=== PATIENT | female | born 1985 | race Caucasian/White ===

== ENCOUNTER 2016-09-09 11:17 | Outpatient (CLI) | payer MEDICAID ==
--- NOTE | 2016-09-09 12:00 | L&D Flow Sheet ---
LD Flowsheet Datetime Report Generated by CPN: 09/09/2016 12:00 Datetime: 09/09/2016 11:53 Vital Signs NBP Sys/Smitha/Mean (mmHg): 123 (QS system process) : 65 (QS system process) : 88 (QS system process) Pulse: 89 (QS system process) Communication LaborFlag: Antepartum (QS system process) Datetime: 09/09/2016 11:37 Vital Signs NBP Sys/Smitha/Mean (mmHg): 133 (QS system process) : 77 (QS system process) : 99 (QS system process) Pulse: 91 (QS system process) Communication LaborFlag: Antepartum (QS system process) Datetime: 09/09/2016 11:30 Uterine Activity Resting Tone (Palpate): Relaxed (Shavonne Murtaza, RN) Assessment A Monitor Mode: External US (Shavonne Murtaza, RN) Pain Pain Scale: 0 (Shavonne Hauser, RN) Pain Presence: None/Denies (Shavonne Hauser, RN) Pain Type: N/A (Shavonne Hauser, RN) Pain Goal: 1 (Shavonne Hauser RN) Pain Relief Measures: Comfort Measures (Shavonne Hauser RN) Vaginal Exam Membrane Status: Intact (Annotations: intact per patient) (Shavonne Hauser, RN) Amniotic Fluid Amount: None (Shavonne Hauser, RN) Vaginal Bleeding: None (Shavonne Hauesr, RN) Maternal Assessment Level of Consciousness: Fully Conscious (Shavonne Hauser RN) DTR's/Clonus: DTRs 2+; No Clonus (Shavonne Hauser RN) Headache: Denies (Shavonne Hauser RN) Breath Sounds, Left: Clear and Equal (Shavonne Hauser RN) Breath Sounds, Right: Clear and Equal (Shavonne Hauser RN) Nausea/Vomiting: Denies (Shavonne Hauser RN) RUQ Epigastric Pain: Denies (Shavonne Hauser RN) Patient Care Oxygen Method: Room Air (Shavonne Hauser RN) Patient Position/Activity: Left Tilt; Semi-Fowlers (Shavonne Hauser RN) I/O Interventions: Clear Liquids Given (Shavonne Hauser RN) Provider Reviewed Strip: Yes (Shavonne Hauser RN) Teaching Instructional Method: Verbal (Shavonne Hauser RN) Plan of Care: Plan of Care Discussed (Shavonne Hauser RN) Unit Routine: [place] to Room; Call Cain; Bed; Visiting Policy (Shavonne Hauser RN) Communication LaborFlag: Antepartum (QS system process)
[2016-09-09 12:07] LABS: APPEARANCE,URINE CLEAR; BILIRUBIN,URINE NEGATIVE (NEGATIVE); GLUCOSE, URINE NEGATIVE (NEGATIVE); KETONES,URINE NEGATIVE (NEGATIVE); LEUKOCYTE ESTERASE,URINE NEGATIVE (NEGATIVE); NITRITE,URINE NEGATIVE (NEGATIVE); PROTEIN,URINE NEGATIVE (NEGATIVE); URINE SPECIFIC GRAVITY 1.005; UROBILINOGEN,URINE NEGATIVE mg/dL (<2.0)
[2016-09-09 12:27] LABS: ABSOLUTE LYMPHOCYTES (AUTO) 1.5 10^3/uL (0.5-4.7); ABSOLUTE MONOCYTES (AUTO) 0.5 10^3/uL (0.1-1.4); ABSOLUTE NEUT (AUTO) 8.2 10^3/uL (1.7-8.2); EOSINOPHILS % (AUTO) 0.1 % (0-6); HEMATOCRIT 35.9 % (36.0-47.0); HEMOGLOBIN 11.9 g/dL (12.0-15.5); HGB HCT DIFFERENCE -0.2; LYMPHOCYTES % (AUTO) 14.6 % (13-45); MEAN CORPUSCULAR HEMOGLOBIN 27.7 pg (27.0-33.4); MEAN CORPUSCULAR HGB CONC 33.2 g/dL (32.0-36.0); MEAN CORPUSCULAR VOLUME 83 fl (80-97); MONOCYTES % (AUTO) 4.9 % (3-13); RED BLOOD COUNT 4.31 10^6/uL (3.72-5.28); RED CELL DISTRIBUTION WIDTH 13.3 % (11.5-14.0); SEGMENTED NEUTROPHILS % (AUTO) 80.4 % (42-78); WHITE BLOOD COUNT 10.2 10^3/uL (4.0-10.5)
[2016-09-09 12:55] LABS: ALANINE AMINOTRANSFERASE 19 U/L (9-52); ALBUMIN 3.4 g/dL (3.5-5.0); ALKALINE PHOSPHATASE 113 U/L (38-126); ANION GAP 10 (5-19); ASPARTATE AMINO TRANSFERASE 16 U/L (14-36); BILIRUBIN,TOTAL 0.2 mg/dL (0.2-1.3); BLOOD UREA NITROGEN 9 mg/dL (7-20); CALCIUM 8.9 mg/dL (8.4-10.2); CARBON DIOXIDE 23 mmol/L (22-30); CHLORIDE 105 mmol/L (98-107); CREATININE RESULT 0.52 mg/dL (0.52-1.25); GLUCOSE 68 mg/dL (75-110); LDH 281 U/L (313-618); POTASSIUM 3.9 mmol/L (3.6-5.0); SODIUM 137.5 mmol/L (137-145); TOTAL PROTEIN 6.1 g/dL (6.3-8.2); URIC ACID 4.6 mg/dL (2.5-6.2)
--- NOTE | 2016-09-09 13:33 | Non Stress Test Report ---
Non Stress Test Datetime Report Generated by CPN: 09/09/2016 13:33 DEMOGRAPHIC EGA NST: 34.6 EGA NST: 32.2 INDICATION Indication for Study: Ordered by Provider Indication for Study: Ordered by Provider VITAL SIGNS Temperature - NST: 98.1 Pulse - NST: 92 RESP - NST: 16 NBPSYS NST: 137 NBPDIA NST: 88 MONITORING Monitor Explained: Monitor Explained; Test Explained; Patient Verbalized Understanding Monitor Explained: Monitor Explained; Test Explained; Patient Verbalized Understanding Time on Monitor: 09/09/2016 11:27 Time on Monitor: 08/22/2016 14:34 Time off Monitor: 09/09/2016 13:29 NST Duration: 122 NST INTERVENTIONS NST Interventions: PO Hydration NST Interventions: PO Hydration; Reposition Patient Physician Notified NST: A. Emmel, CNM BABY A: [id number] BABY A Movement : Present Movement : Present Contraction Frequency : none Contraction Frequency : IRREG FHR Baseline : 130 FHR Baseline : 130 Accelerations : 15X15 Accelerations : 15X15 Decelerations : None Decelerations : None Variability : Moderate 6-25bpm Variability : Moderate 6-25bpm NST Review: Meets Criteria for Reactive NST NST Review: Meets Criteria for Reactive NST NST Review and Verified By : Garfield Che [facility] NST Results: Reactive NST Results: Reactive NST REPORT Report Trigger: Send Report Report Trigger: Send Report
[2016-09-09 18:10] LABS: URINE METHADONE SCREEN NEGATIVE; URINE PHENCYCLIDINE SCREEN NEGATIVE
[2016-09-09 18:41] LABS: URINE BARBITURATES SCREEN NEGATIVE
--- NOTE | 2016-09-15 14:33 | Antepartum Discharge Summary ---
Antepartum DC Datetime Report Generated by CPN: 09/15/2016 14:33 Diet: Regular (09/09/2016 13:19:Shavonne Hauser RN) Activity: Normal Activity (09/09/2016 13:19:Shavonne Hauser RN) Instructions Given To: patient (09/09/2016 13:19:Shavonne Hauser RN) Instructions Understood: Patient Verbalized Understanding; Support Person Verbalized Understanding (09/09/2016 13:19:Shavonne Hauser RN) Referrals: None (09/09/2016 13:19:Shavonne Hauser RN) Educational Materials- Other: kick counts (09/09/2016 13:19:Shavonne Hauser RN) Discharged AMA: No (09/09/2016 13:19:Shavonne Hauser RN) Discharge Date/Time: 09/09/2016 13:35 (09/09/2016 13:19:Shavonne Hauser RN) Discharged To: Home (09/09/2016 13:19:Shavonne Hauser RN) Discharge Provider Name: Nga Evans CNM (09/09/2016 13:19:Shavonne Hauser RN) Accompanied By: self (09/09/2016 13:19:Shavonne Hauser RN) Discharge Method: Ambulatory (09/09/2016 13:19:Shavonne Hauser RN) Condition: Stable (09/09/2016 13:19:Shavonne Hauser RN) Follow Up With: [facility] (09/09/2016 13:19:Shavonne Hauser RN) Follow Up On: As Scheduled (09/09/2016 13:19:Shavonne Hauser RN) Follow Up Phone Number: [facility] - (09/09/2016 13:19:Shavonne Hauser RN) Contractions: Contractions or cramps become more frequent than 8 in one hour or 4 in 20 minutes; Regular painful contractions every 5 minutes or less for one hour. Time your contractions from the beginning of one to the beginning of the next (09/09/2016 13:19:Shavonne Hauser RN) Pressure: Pressure in your vagina or lower abdomen that may feel like the baby is pushing down (09/09/2016 13:19:Shavonne Hauser RN) Period Like Cramps: Period-like cramps or low dull backache that may come and go (09/09/2016 13:19:Shavonne Hauser RN) Cramps/Diarrhea: Abdominal cramps that may be accompanied by diarrhea (09/09/2016 13:19:Shavonne Hauser RN) Gush of Fluid/Blood: Gush of fluid or blood from your vagina (it is normal to have spotting after vaginal exam or intercourse) (09/09/2016 13:19:Shavonne Hauser RN) Vaginal Discharge: Change in the type or amount of vaginal discharge (09/09/2016 13:19:Shavonne Hauser RN) Decreased Movement: Your baby is not moving as much as usual- 4 movements in 1 hour after drinking and resting on side (09/09/2016 13:19:Shavonne Hauser RN) Temperature: Temperature greater than 100.0(F) orally (09/09/2016 13:19:Shavonne Hauser RN) Hypertension Signs/Symptoms: Severe headache which is not relieved 30 minutes after taking Tylenol(Acetaminophen); Blurry vision or spots before your eyes; Severe heartburn or pain on the upper right side of your abdomen that is not relieved by an antacid; Increased swelling in your face, hands or feet (09/09/2016 13:19:Shavonne Hauser RN) Urinary Output: Decreased urinary output or dark colored urine (09/09/2016 13:19:Shavonne Hauser RN)
--- NOTE | 2016-09-15 14:34 | L&D General Admission ---
General Admit Datetime Report Generated by CPN: 09/15/2016 14:34 INFORMATION Patient Age: 30 (08/06/2016 15:13:QS system process) EDC: 10/15/2016 00:00 (08/06/2016 15:40:Meghan Hawkins RN) : 4 (08/06/2016 15:40:Meghan Hawkins RN) Para: 2 (08/13/2016 21:31:Allyson Saenz RN) Para: 2 (08/06/2016 17:24:Meghan Hawkins RN) Para: 2 (08/06/2016 15:40:Meghan Hawkins RN) Term: 2 (08/06/2016 15:40:Clary Mann RN) : 0 (08/06/2016 15:40:Clary Mann RN) Spontaneous Abortions: 1 (08/06/2016 15:40:Clary Mann RN) Induced Abortions: 0 (08/06/2016 15:40:Clary Mann RN) Livin (08/06/2016 15:40:Meghan Hawkins RN) Cesareans: 0 (08/06/2016 15:40:Clary Mann RN) VBACs: 0 (08/06/2016 15:40:Clary Mann RN) Ectopic: 0 (08/06/2016 15:40:Clary Mann RN) Multiple Births: 0 (08/06/2016 15:40:Clary Mann RN) Baby, Number in Womb: 1 (09/09/2016 13:19:Shavonne Hauser RN) Baby, Number in Womb: 1 (08/13/2016 21:31:Allyson Saenz RN) Baby, Number in Womb: 1 (08/06/2016 17:24:Meghan Hawkins RN) CARE Primary Metalsmith Helper: [facility] (08/06/2016 15:40:Meghan Hawkins RN) Metalsmith Helper Other: [facility] (08/06/2016 15:40:Meghan Hawkins RN) Month of 1st Visit: (08/06/2016 15:40:Clary Mann RN) Adequate Care: Yes (08/06/2016 15:40:Meghan Hawkins RN) Prepregnancy Weight (lb): 152 (08/06/2016 15:40:Clary Mann RN) Prepregnancy Weight (kg): 69.1 (08/06/2016 15:40:QS system process) Height (in): 62 (09/09/2016 11:52:QS system process) Height (in): 62 (08/22/2016 15:20:QS system process) Height (in): 62 (08/13/2016 21:18:QS system process) Height (in): 62 (08/08/2016 10:23:QS system process) ALLERGIES Medication Allergy: Yes (08/06/2016 15:40:Meghan Hawkins RN) Medication Allergies: Penicillins/Generalized radha (09/09/2016); amoxicillin/SC/rash (09/09/2016) (09/09/2016 11:52:QS system process) Medication Allergies: Penicillins/Generalized radha (08/13/2016); amoxicillin/SC/rash (08/13/2016) (08/13/2016 21:18:QS system process) Medication Allergies: Penicillins/Generalized radha (08/08/2016); amoxicillin/SC/rash (08/08/2016) (08/08/2016 10:23:QS system process) Medication Allergies: Penicillins/Generalized radha (08/06/2016); amoxicillin/SC/rash (08/06/2016) (08/06/2016 15:44:QS system process) Medication Allergies: Penicillins/Generalized radha (11/10/2013); amoxicillin/SC/rash (11/22/2013) (08/06/2016 15:13:QS system process) Latex Allergy: No Latex Allergies (08/06/2016 15:40:Meghan Hawkins RN) Food Allergies: None (08/06/2016 15:40:Allyson Saenz RN) Environmental Allergies: None (08/06/2016 15:40:Allyson Saenz RN) COMMUNICATION Primary Language: Ugandan (08/06/2016 15:40:Meghan Hawkins RN) Medical Tx Preferred Language: Ugandan (08/06/2016 15:40:Allyson Saenz RN) Communication Barrier(s): None (08/06/2016 15:40:Allyson Saenz RN) DEMOGRAPHICS Address: [address] [place] [id number] (08/06/2016 15:13:QS system process) Zipcode: [address] (08/06/2016 15:13:QS system process) Home (08/06/2016 15:13:QS system process) SSN: [id number] (08/06/2016 15:13:QS system process) Next of Kin Name: FACUNDO OCASIO (08/06/2016 15:13:QS system process) Next of Kin (08/06/2016 15:13:QS system process) Next of Kin Relationship: SPO (08/06/2016 15:13:QS system process) Date of : 1985 (08/06/2016 15:13:QS system process) Marital Status: (08/06/2016 15:13:QS system process) Sex: Female (08/06/2016 15:13:QS system process) Race: (08/06/2016 15:13:QS system process) Ethnicity: Non- or (08/06/2016 15:13:QS system process) Hinduism: Mandaen (08/06/2016 15:13:QS system process) DRUG AND ALCOHOL USE Alcohol: No (08/06/2016 15:40:Meghan Hawkins RN) Cigarettes: Never Smoker. [id number] (08/06/2016 15:40:Meghan Hawkins RN) Marijuana: No (08/06/2016 15:40:Meghan Hawkins RN) Cocaine: No (08/06/2016 15:40:Meghan Hawkins RN) Other Illicit Drugs: No (08/06/2016 15:40:Meghan Hawkins RN) VACCINE HISTORY Influenza Vaccine: No (08/06/2016 15:40:Sommer West RN) Upsetter Setter Up: [facility] (08/06/2016 15:40:Meghan Hawkins RN) Feeding Preference: Breast (08/06/2016 15:40:Meghan Hawkins RN) Benefit of Breast Feed Discussed: Yes (08/06/2016 15:40:Meghan Hawkins RN) Circumcision: Yes (08/06/2016 15:40:Meghan Hawkins RN) Classes Attended: No (08/06/2016 15:40:Meghan Hawkins RN) Tubal Ligation: No (08/06/2016 15:40:Meghan Hawkins RN) Tubal Authorization Signed: N/A (08/06/2016 15:40:Meghan Hawkins RN) Consent: N/A (08/06/2016 15:40:Meghan Hawkins RN) Consent Signed: N/A (08/06/2016 15:40:Meghan Hawkins RN) Pain Management Plans: Natural; Medications (08/06/2016 15:40:Meghan Hawkins RN) Plans for Labor and Delivery: None (08/06/2016 15:40:Allyson Saenz RN) Support Person: Facundo Ocasio (08/06/2016 15:40:Meghan Hawkins RN) Cultural/Spritual Practice: No (08/06/2016 15:40:Meghan Hawkins RN) Spir/Cult Dietary Needs: No (08/06/2016 15:40:Meghan Hawkins RN) LIVING SITUATION/DISCHARGE PLAN Living Arrangements: House (08/06/2016 15:40:Meghan Hawkins RN) Adequate Access to:: Electric; Heat; Refrigeration; Plumbing/Running water; Phone; Transportation (08/06/2016 15:40:Meghan Hawkins RN) WIC Program: Yes (08/06/2016 15:40:Meghan Hawkins RN) Discharge Weighing Station Operator Person: Facundo Ocasio (08/06/2016 15:40:Meghan Hawkins RN) Person to Help after Discharge: Facundo Ocasio (08/06/2016 15:40:Meghan Hawkins RN) Currently Using Commun Resources: Yes (08/06/2016 15:40:Meghan Hawkins RN) Specify Current Resource Used: Medicaid (08/06/2016 15:40:Meghan Hawkins RN) Car Seat for Discharge: Yes (08/06/2016 15:40:Meghan Hawkins RN) Adoption Requested: No (08/06/2016 15:40:Meghan Hawkins RN) Pt Contact w/infant Post : N/A (08/06/2016 15:40:Allyson Saenz RN) LABS Blood Type: O Positive (08/06/2016 15:40:Sommer West RN) Antibody Screen: Negative (08/06/2016 15:40:Sommer West RN) Rho(G) this : Not Applicable (08/06/2016 15:40:Clary Mann RN) Hemoglobin: 11.9 L (09/09/2016 12:13:QS system process) Hemoglobin: 12.1 (08/22/2016 14:29:QS system process) Hemoglobin: 12.3 (08/06/2016 15:59:QS system process) Hematocrit: 35.9 L (09/09/2016 12:13:QS system process) Hematocrit: 35.1 L (08/22/2016 14:29:QS system process) Hematocrit: 35.2 L (08/06/2016 15:59:QS system process) MCV: 83 (09/09/2016 12:13:QS system process) MCV: 84 (08/22/2016 14:29:QS system process) MCV: 84 (08/06/2016 15:59:QS system process) RPR/VDRL: Nonreactive (Annotations: Data stored by CPN on behalf of user) (08/06/2016 15:40:Sommer West RN) HIV Exposure Test: Negative (08/06/2016 15:40:Sommer West RN) HIV Results: Negative (08/06/2016 15:40:Sommer West RN) Hepatitis B: Negative (08/06/2016 15:40:Clary Mann RN) Rubella: Immune (08/06/2016 15:40:Clary Mann RN) OB/PREVIOUS HISTORY Previous Procedures: Ultrasound; NST (08/06/2016 15:40:Sommer West RN) Current Procedures: Ultrasound; NST (08/06/2016 15:40:Sommer West RN) History of Previous : No (08/06/2016 15:40:Sommer West RN) History of Gestational Diabetes: No (08/06/2016 15:40:Sommer West RN) History of PIH: Yes (08/06/2016 15:40:Sommer West RN) History of Incompetent Cervix: No (08/06/2016 15:40:Sommer West RN) History of Placenta Previa/Abrup: No (08/06/2016 15:40:Sommer West RN) History of Macrosomia: No (08/06/2016 15:40:Sommer West RN) History of IUGR: No (08/06/2016 15:40:Sommer West RN) History of Hemorrhage: No (08/06/2016 15:40:Sommer West RN) History of Loss/Stillborn: No (08/06/2016 15:40:Sommer West RN) History of : No (08/06/2016 15:40:Sommer West RN) History of D (Rh) Sensitization: No (08/06/2016 15:40:Sommer West RN) History Recurrent Loss/Stillborn: No (08/06/2016 15:40:Sommer West RN) History Depression/PP Depression: No (08/06/2016 15:40:Sommer West RN) History of Uterine Anomaly/SHAWN: No (08/06/2016 15:40:Sommer West RN) History of Infertility: No (08/06/2016 15:40:Sommer West RN) History of ART Treatment: No (08/06/2016 15:40:Sommer West RN) History of SHAWN: No (08/06/2016 15:40:Sommer West RN) Comments Obstetrical History: G1: 2010 baby girl, 39 weeks, 3 hours labor, 5 lb 4 oz, HTN G2: 2013 baby girl, 38.3 weeks, 2 hours labor, 6 lb 10 oz G3: 2014 SAB 8 weeks G4: Current; Breech 08/06; Baseline 24* protein 352 05/27 (08/06/2016 15:40:Clary Mann RN) MEDICAL HISTORY Med Hx Diabetes: No (08/06/2016 15:40:Sommer West RN) Med Hx Hypertension: No (08/06/2016 15:40:Sommer West RN) Med Hx Heart Disease: No (08/06/2016 15:40:Sommer West RN) Med Hx Autoimmune Disorder: No (08/06/2016 15:40:Sommer West RN) Med Hx Kidney Disease/UTI: No (08/06/2016 15:40:Sommer West RN) Med Hx Neurologic/Epilepsy: No (08/06/2016 15:40:Sommer West RN) Med Hx Psychiatric Disorders: No (08/06/2016 15:40:Sommer West RN) Med Hx Hepatitis/Liver Disease: No (08/06/2016 15:40:Sommer West RN) Med Hx Varicosities/Phlebitis: No (08/06/2016 15:40:Sommer West RN) Med Hx Thyroid Dysfunction: No (08/06/2016 15:40:Sommer West RN) Med Hx Trauma/Violence: No (08/06/2016 15:40:Sommer West RN) Med Hx Blood Transfusion: No (08/06/2016 15:40:Sommer West RN) Med Hx Pulmonary (Asthma,TB): No (08/06/2016 15:40:Sommer West RN) Med Hx Breast: No (08/06/2016 15:40:Sommer West RN) Med Hx PARACHUTE/COMBATANT DIVER OFFICER Surgery: No (08/06/2016 15:40:Sommer West RN) Med Hx Hospitalization/Surgery: No (08/06/2016 15:40:Sommer West RN) Med Hx Anesthetic Complications: No (08/06/2016 15:40:Sommer West RN) Med Hx Abnormal Pap Smear: No (08/06/2016 15:40:Sommer West RN) Other Medical Diseases: No (08/06/2016 15:40:Sommer West RN) Med Hx Significant Family Hx: No (08/06/2016 15:40:Sommer West RN) INFECTIOUS HISTORY Inf Hx Gonorrhea: No (08/06/2016 15:40:Sommer West RN) Inf Hx Chlamydia: No (08/06/2016 15:40:Sommer West RN) Inf Hx Syphilis: No (08/06/2016 15:40:Sommer West RN) Inf Hx HIV/AIDS: No (08/06/2016 15:40:Sommer West RN) Inf Hx Human Papilloma Virus: No (08/06/2016 15:40:Sommer West RN) Inf Hx Pt/Partner Genital Herpes: No (08/06/2016 15:40:Sommer West RN) Inf Hx Tuberculosis/Exposure: No (08/06/2016 15:40:Sommer West RN) Inf Hx Hepatitis B,C: No (08/06/2016 15:40:Sommer West RN) Inf Hx Rash or Viral Illness: No (08/06/2016 15:40:Sommer West RN) GENETIC HISTORY Gen Hx Age >=35 at LELSIE: No (08/06/2016 15:40:Sommer West RN) Gen Hx Thalassemia: No (08/06/2016 15:40:Sommer West RN) Gen Hx Congenital Heart Defect: No (08/06/2016 15:40:Sommer West RN) Gen Hx Neural Tube Defect: No (08/06/2016 15:40:Sommer West RN) Gen Hx Down's Syndrome: No (08/06/2016 15:40:Sommer West RN) Gen Hx Julius-Sachs: No (08/06/2016 15:40:Sommer West RN) Gen Hx Fabrice: No (08/06/2016 15:40:Sommer West RN) Gen Hx Familial Dysautonomia: No (08/06/2016 15:40:Sommer West RN) Gen Hx Sickle Cell Disease/Trait: No (08/06/2016 15:40:Sommer West RN) Gen Hx Hemophilia/Blood Disorder: No (08/06/2016 15:40:Sommer West RN) Gen Hx Muscular Dystrophy: No (08/06/2016 15:40:Sommer West RN) Gen Hx Cystic Fibrosis: No (08/06/2016 15:40:Sommer West RN) Gen Hx Huntingtons Chorea: No (08/06/2016 15:40:Sommer West RN) Gen Hx Mental Retardation/Autism: No (08/06/2016 15:40:Sommer West RN) Gen Hx Tested for Fragile X: No (08/06/2016 15:40:Sommer West RN) Gen Hx Other Inher/Chromosomal: No (08/06/2016 15:40:Sommre West RN) Gen Hx Maternal Metabolic DO: No (08/06/2016 15:40:Sommer West RN) Gen Hx Pt Father or FOB Defect: No (08/06/2016 15:40:Sommer West RN) Gen Hx Other Genetic History: No (08/06/2016 15:40:Sommer West RN) Gen Hx Drugs/Meds since LMP: No (08/06/2016 15:40:Sommer West RN)
--- NOTE | 2016-09-15 14:34 | L&D Current Admission ---
Current Admit Datetime Report Generated by N: 09/15/2016 14:34 Chief Complaint[facility] (09/09/2016 11:30:Shavonne Hauser RN)
--- NOTE | 2016-09-15 14:34 | L&D Flow Sheet ---
LD Flowsheet Datetime Report Generated by CPN: 09/15/2016 14:34 Datetime: 09/09/2016 13:22 NBP Sys/Smitha/Mean (mmHg): 108 (QS system process) : 60 (QS system process) : 79 (QS system process) Pulse: 81 (QS system process) LaborFlag: Antepartum (QS system process) Datetime: 09/09/2016 13:07 NBP Sys/Smitha/Mean (mmHg): 117 (QS system process) : 61 (QS system process) : 83 (QS system process) Pulse: 87 (QS system process) LaborFlag: Antepartum (QS system process) Datetime: 09/09/2016 13:00 Monitor Mode: External; Palpation (Shavonne Hauser, RN) Frequency (min): none (Shavonne Hauser, RN) Resting Tone (Palpate): Relaxed (Shavonne Hauser, RN) Monitor Mode: External US (Shavonne Hauser, RN) FHR Baseline Rate : 125 (Shavonne Hauser, RN) FHR Baseline Changes: No Baseline Change (Shavonne Murtaza, RN) Variability: Moderate 6-25 bpm (Shavonne Murtaza, RN) Accelerations: 15X15 (Shavonne Murtaza, RN) Decelerations: None (Shavonne Murtaza, RN) Datetime: 09/09/2016 12:52 NBP Sys/Smitha/Mean (mmHg): 119 (QS system process) : 66 (QS system process) : 88 (QS system process) Pulse: 89 (QS system process) LaborFlag: Antepartum (QS system process) Datetime: 09/09/2016 12:37 NBP Sys/Smitha/Mean (mmHg): 125 (QS system process) : 70 (QS system process) : 91 (QS system process) Pulse: 86 (QS system process) LaborFlag: Antepartum (QS system process) Datetime: 09/09/2016 12:30 Monitor Mode: External; Palpation (Shavonne Hauser, RN) Frequency (min): none (Shavonne Hauser, RN) Resting Tone (Palpate): Relaxed (Shavonne Hauser RN) Monitor Mode: External US (Shavonne Hauser RN) FHR Baseline Rate : 125 (Shavonne Hauser RN) FHR Baseline Changes: No Baseline Change (Shavonne Hauser, RN) Variability: Moderate 6-25 bpm (Shavonne Hauser, RN) Accelerations: 15X15 (Shavonne Hauser, RN) Decelerations: None (Shavonne Hauser, RN) Datetime: 09/09/2016 12:22 NBP Sys/Smitha/Mean (mmHg): 125 (QS system process) : 66 (QS system process) : 89 (QS system process) Pulse: 89 (QS system process) LaborFlag: Antepartum (QS system process) Datetime: 09/09/2016 12:07 NBP Sys/Smitha/Mean (mmHg): 123 (QS system process) : 68 (QS system process) : 90 (QS system process) Pulse: 88 (QS system process) LaborFlag: Antepartum (QS system process) Datetime: 09/09/2016 12:00 Monitor Mode: External; Palpation (Shavonne Hauser RN) Frequency (min): none (Shavonne Hauser RN) Resting Tone (Palpate): Relaxed (Shavonne Hauser RN) Monitor Mode: External US (Shavonne Hauser RN) FHR Baseline Rate : 125 (Shavonne Hauser, RN) Variability: Moderate 6-25 bpm (Shavonne Hauser, RN) Accelerations: 15X15 (Shavonne Hauser RN) Decelerations: None (Shavonne Hauser RN) Datetime: 09/09/2016 11:53 NBP Sys/Smitha/Mean (mmHg): 123 (QS system process) : 65 (QS system process) : 88 (QS system process) Pulse: 89 (QS system process) LaborFlag: Antepartum (QS system process) Datetime: 09/09/2016 11:37 NBP Sys/Smitha/Mean (mmHg): 133 (QS system process) : 77 (QS system process) : 99 (QS system process) Pulse: 91 (QS system process) LaborFlag: Antepartum (QS system process) Datetime: 09/09/2016 11:30 Resting Tone (Palpate): Relaxed (Shavonne Hauser RN) Monitor Mode: External US (Shavonne Hauser RN) Pain Scale: 0 (Shavonen Hauser RN) Pain Presence: None/Denies (Shavonne Hauser RN) Pain Type: N/A (Shavonne Hauser RN) Pain Goal: 1 (Shavonne Hauser RN) Pain Relief Measures: Comfort Measures (Shavonne Hauser RN) Membrane Status: Intact (Annotations: intact per patient) (Shavonne Hauser RN) Amniotic Fluid Amount: None (Shavonne Hauser RN) Vaginal Bleeding: None (Shavonne Hauser RN) Level of Consciousness: Fully Conscious (Shavonne Hauser RN) DTR's/Clonus: DTRs 2+; No Clonus (Shavonne Hauser, BAR) Headache: Denies (Shavonne Hauser RN) Breath Sounds, Left: Clear and Equal (Shavonne Hauser RN) Breath Sounds, Right: Clear and Equal (Shavonne Hauser, BAR) Nausea/Vomiting: Denies (Shavonne Hauser RN) RUQ Epigastric Pain: Denies (Shavonne Hauser, BAR) Oxygen Method: Room Air (Shavonne Hauser, RN) Patient Position/Activity: Left Tilt; Semi-Fowlers (Shavonne Hauser, BAR) I/O Interventions: Clear Liquids Given (Shavonne Hauser RN) Provider Reviewed Strip: Yes (Shavonne Hauser, BAR) Instructional Method: Verbal (Shavonne Hauser, RN) Plan of Care: Plan of Care Discussed (Shavonne Hauser, RN) Unit Routine: [place] to Room; Call Cain; Bed; Visiting Policy (Shavonne Hauser RN) LaborFlag: Antepartum (QS system process)
--- NOTE | 2016-09-15 14:35 | L&D Discharge Summary ---
OB Discharge Summary Datetime Report Generated by CPN: 09/15/2016 14:35 DISCHARGE DIAGNOSIS Diagnosis/Symptoms: Other Diagnoses/Symptoms Other: IUP at 34.6, reactive NST, no pre-e Gestation: 34.6 Number of Babies in Womb: 1 Parity: 2 DIET/ACTIVITY/RESTRICTIONS Diet: Regular Activity: Normal Activity TEACHING/INSTRUCTIONS/REFERRALS Instructions Given To: patient Instructions Understood: Patient Verbalized Understanding; Support Person Verbalized Understanding Referrals: None Educational Materials- Other: kick counts DISCHARGE INFORMATION Discharged AMA: No Discharge Date/Time: 09/09/2016 13:35 Discharged To: Home Discharge Provider Name: Nga EvansCHATOObey Accompanied By: self Discharge Method: Ambulatory Condition: Stable FOLLOW UP INFORMATION Follow Up With: [facility] Follow Up On: As Scheduled Follow Up Phone Number: [facility] - Comments: Advised patient to return for decreased movement, leaking of fluid, bleeding like a period, and contractions. Patient without questions at this time. GENERAL INSTR-CALL PROVIDER IF: Contractions: Contractions or cramps become more frequent than 8 in one hour or 4 in 20 minutes; Regular painful contractions every 5 minutes or less for one hour. Time your contractions from the beginning of one to the beginning of the next Pressure: Pressure in your vagina or lower abdomen that may feel like the baby is pushing down Period Like Cramps: Period-like cramps or low dull backache that may come and go Cramps/Diarrhea: Abdominal cramps that may be accompanied by diarrhea Gush of Fluid/Blood: Gush of fluid or blood from your vagina (it is normal to have spotting after vaginal exam or intercourse) Vaginal Discharge: Change in the type or amount of vaginal discharge Decreased Movement: Your baby is not moving as much as usual- 4 movements in 1 hour after drinking and resting on side Temperature: Temperature greater than 100.0(F) orally
--- NOTE | 2016-09-15 14:36 | Non Stress Test Report ---
Non Stress Test Datetime Report Generated by [facility]: 09/15/2016 14:36 Indication for Study: Ordered by Provider Monitor Explained: Monitor Explained; Test Explained; Patient Verbalized Understanding Time on Monitor: 09/09/2016 11:27 NST Interventions: PO Hydration Physician Notified NST: Nga Evans CNM Movement : Present FHR Baseline : 130 Accelerations : 15X15 Decelerations : None Variability : Moderate 6-25bpm NST Review: Meets Criteria for Reactive NST NST Results: Reactive
--- NOTE | 2016-09-15 14:38 | Non Stress Test Report ---
Non Stress Test Datetime Report Generated by CPN: 09/15/2016 14:38 EGA NST: 34.6 Indication for Study: Ordered by Provider Monitor Explained: Monitor Explained; Test Explained; Patient Verbalized Understanding Time on Monitor: 09/09/2016 11:27 Time off Monitor: 09/09/2016 13:29 NST Duration: 122 NST Interventions: PO Hydration Physician Notified NST: Nga Evans CNM Movement : Present Contraction Frequency : none FHR Baseline : 130 Accelerations : 15X15 Decelerations : None Variability : Moderate 6-25bpm NST Review: Meets Criteria for Reactive NST NST Review and Verified By : Garfield TIMMONS NST Results: Reactive Report Trigger: Send Report
--- NOTE | 2016-09-16 06:17 | L&D Current Admission ---
Current Admit Datetime Report Generated by CPN: 09/16/2016 06:00 ADMISSION INFORMATION Chief Complaint: PIH workup sent from [facility], [facility] ordered (09/09/2016 11:30:Shavonne Hauser RN) Medications During : Rantidine (Zantac) (08/06/2016 15:35:Sommer West RN) Meds During -Oth: PNV; Probiotics (08/06/2016 15:35:Sommer West RN) Method of Arrival: Ambulatory (08/06/2016 15:35:Sommer West RN) Admitted From: Home (08/06/2016 15:35:Sommer West RN) Records Available: Yes (08/06/2016 15:35:Sommer West RN)
--- NOTE | 2016-09-16 06:17 | L&D General Admission ---
General Admit Datetime Report Generated by CPN: 09/16/2016 06:00 INFORMATION Patient Age: 30 (08/06/2016 15:13:QS system process) EDC: 10/15/2016 00:00 (08/06/2016 15:40:Meghan Hawkins RN) : 4 (08/06/2016 15:40:Meghan Hawkins RN) Para: 2 (08/13/2016 21:31:Allyson Saenz RN) Term: 2 (08/06/2016 15:40:Clary Mann RN) : 0 (08/06/2016 15:40:Clary Mann RN) Spontaneous Abortions: 1 (08/06/2016 15:40:Clary Mann RN) Induced Abortions: 0 (08/06/2016 15:40:Clary Mann RN) Livin (08/06/2016 15:40:Meghan Hawkins RN) Cesareans: 0 (08/06/2016 15:40:Clary Mann RN) VBACs: 0 (08/06/2016 15:40:Clary Mann RN) Ectopic: 0 (08/06/2016 15:40:Clary Mann RN) Multiple Births: 0 (08/06/2016 15:40:Clary Mann RN) Baby, Number in Womb: 1 (09/09/2016 13:19:Shavonne Hauser RN) CARE Primary Bedspread Inspector: [facility] (08/06/2016 15:40:Meghan Hawkins RN) Bedspread Inspector Other: [facility] (08/06/2016 15:40:Meghan Hawkins RN) Month of 1st Visit: (08/06/2016 15:40:Clary Mann RN) Adequate Care: Yes (08/06/2016 15:40:Meghan Hawkins RN) Prepregnancy Weight (lb): 152 (08/06/2016 15:40:Clary Mann RN) Prepregnancy Weight (kg): 69.1 (08/06/2016 15:40:QS system process) Height (in): 62 (09/09/2016 11:52:QS system process) ALLERGIES Medication Allergy: Yes (08/06/2016 15:40:Meghan Hawkins RN) Medication Allergies: Penicillins/Generalized radha (09/09/2016); amoxicillin/UT/rash (09/09/2016) (09/09/2016 11:52:QS system process) Latex Allergy: No Latex Allergies (08/06/2016 15:40:Meghan Hawkins RN) Food Allergies: None (08/06/2016 15:40:Allyson Saenz RN) Environmental Allergies: None (08/06/2016 15:40:Allyson Saenz RN) COMMUNICATION Primary Language: Slovak (08/06/2016 15:40:Meghan Hawkins RN) Medical Tx Preferred Language: Slovak (08/06/2016 15:40:Allyson Saenz RN) Communication Barrier(s): None (08/06/2016 15:40:Allyson Saenz RN) DEMOGRAPHICS Address: [address] [place], [place] [id number] (08/06/2016 15:13:QS system process) Zipcode: [address] (08/06/2016 15:13:QS system process) Home (08/06/2016 15:13:QS system process) SSN: [id number] (08/06/2016 15:13:QS system process) Next of Kin Name: FACUNDO OCASIO (08/06/2016 15:13:QS system process) Next of Kin (08/06/2016 15:13:QS system process) Next of Kin Relationship: SPO (08/06/2016 15:13:QS system process) Date of : 1985 (08/06/2016 15:13:QS system process) Marital Status: (08/06/2016 15:13:QS system process) Sex: Female (08/06/2016 15:13:QS system process) Race: (08/06/2016 15:13:QS system process) Ethnicity: Non- or (08/06/2016 15:13:QS system process) Pentecostalism: Christianity (08/06/2016 15:13:QS system process) DRUG AND ALCOHOL USE Alcohol: No (08/06/2016 15:40:Meghan Hawkins RN) Cigarettes: Never Smoker. [id number] (08/06/2016 15:40:Meghan Hawkins RN) Marijuana: No (08/06/2016 15:40:Meghan Hawkins RN) Cocaine: No (08/06/2016 15:40:Meghan Hawkins RN) Other Illicit Drugs: No (08/06/2016 15:40:Meghan Hawkins RN) VACCINE HISTORY Influenza Vaccine: No (08/06/2016 15:40:Sommer West RN) Cementer Machine: [facility] (08/06/2016 15:40:Meghan Hawkins RN) Feeding Preference: Breast (08/06/2016 15:40:Meghan Hawkins RN) Benefit of Breast Feed Discussed: Yes (08/06/2016 15:40:Meghan Hawkins RN) Circumcision: Yes (08/06/2016 15:40:Meghan Hawkins RN) Classes Attended: No (08/06/2016 15:40:Meghan Hawkins RN) Tubal Ligation: No (08/06/2016 15:40:Meghan Hawkins RN) Tubal Authorization Signed: N/A (08/06/2016 15:40:Meghan Hawkins RN) Consent: N/A (08/06/2016 15:40:Meghan Hawkins RN) Consent Signed: N/A (08/06/2016 15:40:Meghan Hawkins RN) Pain Management Plans: Natural; Medications (08/06/2016 15:40:Meghan Hawkins RN) Plans for Labor and Delivery: None (08/06/2016 15:40:Allyson Saenz RN) Support Person: Facundo Ocasio (08/06/2016 15:40:Meghan Hawkins RN) Cultural/Spritual Practice: No (08/06/2016 15:40:Meghan Hawkins RN) Spir/Cult Dietary Needs: No (08/06/2016 15:40:Meghan Hawkins RN) LIVING SITUATION/DISCHARGE PLAN Living Arrangements: House (08/06/2016 15:40:Meghan Hawkins RN) Adequate Access to:: Electric; Heat; Refrigeration; Plumbing/Running water; Phone; Transportation (08/06/2016 15:40:Meghan Hawkins RN) WIC Program: Yes (08/06/2016 15:40:Meghan Hawkins RN) Discharge Instrumentation Engineer Person: Facundo Ocasio (08/06/2016 15:40:Meghan Hawkins RN) Person to Help after Discharge: Facundo Ocasio (08/06/2016 15:40:Meghan Hawkins RN) Currently Using Commun Resources: Yes (08/06/2016 15:40:Meghan Hawkins RN) Specify Current Resource Used: Medicaid (08/06/2016 15:40:Meghan Hawkins RN) Car Seat for Discharge: Yes (08/06/2016 15:40:Meghan Hawkins RN) Adoption Requested: No (08/06/2016 15:40:Meghan Hawkins RN) Pt Contact w/infant Post : N/A (08/06/2016 15:40:Allyson Saenz RN) LABS Blood Type: O Positive (08/06/2016 15:40:Sommer West RN) Antibody Screen: Negative (08/06/2016 15:40:Sommer West RN) Rho(G) this : Not Applicable (08/06/2016 15:40:Clary Mann RN) Hemoglobin: 11.9 L (09/09/2016 12:13:QS system process) Hematocrit: 35.9 L (09/09/2016 12:13:QS system process) MCV: 83 (09/09/2016 12:13:QS system process) RPR/VDRL: Nonreactive (Annotations: Data stored by CPN on behalf of user) (08/06/2016 15:40:Sommer West RN) HIV Exposure Test: Negative (08/06/2016 15:40:Sommer West RN) HIV Results: Negative (08/06/2016 15:40:Sommer West RN) Hepatitis B: Negative (08/06/2016 15:40:Clary Mann RN) Rubella: Immune (08/06/2016 15:40:Clary Mann RN) OB/PREVIOUS HISTORY Previous Procedures: Ultrasound; NST (08/06/2016 15:40:Sommer West RN) Current Procedures: Ultrasound; NST (08/06/2016 15:40:Sommer West RN) History of Previous : No (08/06/2016 15:40:Sommer West RN) History of Gestational Diabetes: No (08/06/2016 15:40:Sommer West RN) History of PIH: Yes (08/06/2016 15:40:Sommer West RN) History of Incompetent Cervix: No (08/06/2016 15:40:Sommer West RN) History of Placenta Previa/Abrup: No (08/06/2016 15:40:Sommer West RN) History of Macrosomia: No (08/06/2016 15:40:Sommer West RN) History of IUGR: No (08/06/2016 15:40:Sommer West RN) History of Hemorrhage: No (08/06/2016 15:40:Sommer West RN) History of Loss/Stillborn: No (08/06/2016 15:40:Sommer West RN) History of : No (08/06/2016 15:40:Sommer West RN) History of D (Rh) Sensitization: No (08/06/2016 15:40:Sommer West RN) History Recurrent Loss/Stillborn: No (08/06/2016 15:40:Sommer West RN) History Depression/PP Depression: No (08/06/2016 15:40:Sommer West RN) History of Uterine Anomaly/SHAWN: No (08/06/2016 15:40:Sommer West RN) History of Infertility: No (08/06/2016 15:40:Sommer West RN) History of ART Treatment: No (08/06/2016 15:40:Sommer West RN) History of SHAWN: No (08/06/2016 15:40:Sommer West RN) Comments Obstetrical History: G1: 2010 baby girl, 39 weeks, 3 hours labor, 5 lb 4 oz, HTN G2: 2013 baby girl, 38.3 weeks, 2 hours labor, 6 lb 10 oz G3: 2014 SAB 8 weeks G4: Current; Breech 08/06; Baseline 24* protein 352 05/27 (08/06/2016 15:40:Clary Mann RN) MEDICAL HISTORY Med Hx Diabetes: No (08/06/2016 15:40:Sommer West RN) Med Hx Hypertension: No (08/06/2016 15:40:Sommer West RN) Med Hx Heart Disease: No (08/06/2016 15:40:Sommer West RN) Med Hx Autoimmune Disorder: No (08/06/2016 15:40:Sommer West RN) Med Hx Kidney Disease/UTI: No (08/06/2016 15:40:Sommer West RN) Med Hx Neurologic/Epilepsy: No (08/06/2016 15:40:Sommer West RN) Med Hx Psychiatric Disorders: No (08/06/2016 15:40:Sommer West RN) Med Hx Hepatitis/Liver Disease: No (08/06/2016 15:40:Sommer West RN) Med Hx Varicosities/Phlebitis: No (08/06/2016 15:40:Sommer West RN) Med Hx Thyroid Dysfunction: No (08/06/2016 15:40:Sommer West RN) Med Hx Trauma/Violence: No (08/06/2016 15:40:Sommer West RN) Med Hx Blood Transfusion: No (08/06/2016 15:40:Sommer West RN) Med Hx Pulmonary (Asthma,TB): No (08/06/2016 15:40:Sommer West RN) Med Hx Breast: No (08/06/2016 15:40:Sommer West RN) Med Hx [place] Surgery: No (08/06/2016 15:40:Sommer West RN) Med Hx Hospitalization/Surgery: No (08/06/2016 15:40:Sommer West RN) Med Hx Anesthetic Complications: No (08/06/2016 15:40:Sommer West RN) Med Hx Abnormal Pap Smear: No (08/06/2016 15:40:Sommer West RN) Other Medical Diseases: No (08/06/2016 15:40:Sommer West RN) Med Hx Significant Family Hx: No (08/06/2016 15:40:Sommer West RN) INFECTIOUS HISTORY Inf Hx Gonorrhea: No (08/06/2016 15:40:Sommer West RN) Inf Hx Chlamydia: No (08/06/2016 15:40:Sommer West RN) Inf Hx Syphilis: No (08/06/2016 15:40:Sommer West RN) Inf Hx HIV/AIDS: No (08/06/2016 15:40:Sommer West RN) Inf Hx Human Papilloma Virus: No (08/06/2016 15:40:Sommer West RN) Inf Hx Pt/Partner Genital Herpes: No (08/06/2016 15:40:Sommer West RN) Inf Hx Tuberculosis/Exposure: No (08/06/2016 15:40:Sommer West RN) Inf Hx Hepatitis B,C: No (08/06/2016 15:40:Sommer West RN) Inf Hx Rash or Viral Illness: No (08/06/2016 15:40:Sommer West RN) GENETIC HISTORY Gen Hx Age >=35 at LESLIE: No (08/06/2016 15:40:Sommer West RN) Gen Hx Thalassemia: No (08/06/2016 15:40:Sommer West RN) Gen Hx Congenital Heart Defect: No (08/06/2016 15:40:Sommer West RN) Gen Hx Neural Tube Defect: No (08/06/2016 15:40:Sommer West RN) Gen Hx Down's Syndrome: No (08/06/2016 15:40:Sommer West RN) Gen Hx Julius-Sachs: No (08/06/2016 15:40:Sommer West RN) Gen Hx Fabrice: No (08/06/2016 15:40:Sommer West RN) Gen Hx Familial Dysautonomia: No (08/06/2016 15:40:Sommer West RN) Gen Hx Sickle Cell Disease/Trait: No (08/06/2016 15:40:Sommer West RN) Gen Hx Hemophilia/Blood Disorder: No (08/06/2016 15:40:Sommer West RN) Gen Hx Muscular Dystrophy: No (08/06/2016 15:40:Sommer West RN) Gen Hx Cystic Fibrosis: No (08/06/2016 15:40:Sommer West RN) Gen Hx Huntingtons Chorea: No (08/06/2016 15:40:Sommer West RN) Gen Hx Mental Retardation/Autism: No (08/06/2016 15:40:Sommer West RN) Gen Hx Tested for Fragile X: No (08/06/2016 15:40:Sommer West RN) Gen Hx Other Inher/Chromosomal: No (08/06/2016 15:40:Sommer West RN) Gen Hx Maternal Metabolic DO: No (08/06/2016 15:40:Sommer West RN) Gen Hx Pt Father or FOB Defect: No (08/06/2016 15:40:Sommer West RN) Gen Hx Other Genetic History: No (08/06/2016 15:40:Sommer West RN) Gen Hx Drugs/Meds since LMP: No (08/06/2016 15:40:Sommer West RN)
--- NOTE | 2016-09-17 06:18 | L&D General Admission ---
General Admit Datetime Report Generated by CPN: 09/17/2016 06:00 INFORMATION Patient Age: 30 (08/06/2016 15:13:QS system process) EDC: 10/15/2016 00:00 (08/06/2016 15:40:Meghan Hawkins RN) : 4 (08/06/2016 15:40:Meghan Hawkins RN) Para: 2 (08/13/2016 21:31:Allyson Saenz RN) Term: 2 (08/06/2016 15:40:Clary Mann RN) : 0 (08/06/2016 15:40:Clary Mann RN) Spontaneous Abortions: 1 (08/06/2016 15:40:Clary Mann RN) Induced Abortions: 0 (08/06/2016 15:40:Clary Mann RN) Livin (08/06/2016 15:40:Meghan Hawkins RN) Cesareans: 0 (08/06/2016 15:40:Clary Mnan RN) VBACs: 0 (08/06/2016 15:40:Clary Mann RN) Ectopic: 0 (08/06/2016 15:40:Clary Mann RN) Multiple Births: 0 (08/06/2016 15:40:Clary Mann RN) Baby, Number in Womb: 1 (09/09/2016 13:19:Shavonne aHuser RN) CARE Primary Dobby Loom Fixer: [facility] (08/06/2016 15:40:Meghan Hawkins RN) Dobby Loom Fixer Other: [facility] (08/06/2016 15:40:Meghan Hawkins RN) Month of 1st Visit: (08/06/2016 15:40:Clary Mann RN) Adequate Care: Yes (08/06/2016 15:40:Meghan Hawkins RN) Prepregnancy Weight (lb): 152 (08/06/2016 15:40:Clary Mann RN) Prepregnancy Weight (kg): 69.1 (08/06/2016 15:40:QS system process) Height (in): 62 (09/09/2016 11:52:QS system process) ALLERGIES Medication Allergy: Yes (08/06/2016 15:40:Meghan Hawkins RN) Medication Allergies: Penicillins/Generalized radha (09/09/2016); amoxicillin/ND/rash (09/09/2016) (09/09/2016 11:52:QS system process) Latex Allergy: No Latex Allergies (08/06/2016 15:40:Meghan Hawkins RN) Food Allergies: None (08/06/2016 15:40:Allyson Saenz RN) Environmental Allergies: None (08/06/2016 15:40:Allyson Saenz RN) COMMUNICATION Primary Language: Maltese (08/06/2016 15:40:Meghan Hawkins RN) Medical Tx Preferred Language: Maltese (08/06/2016 15:40:Allyson Saenz RN) Communication Barrier(s): None (08/06/2016 15:40:Allyson Saenz RN) DEMOGRAPHICS Address: [address] [place], [place] [id number] (08/06/2016 15:13:QS system process) Zipcode: [id number] (08/06/2016 15:13:QS system process) Home (08/06/2016 15:13:QS system process) SSN: [id number] (08/06/2016 15:13:QS system process) Next of Kin Name: FACUNDO OCASIO (08/06/2016 15:13:QS system process) Next of Kin (08/06/2016 15:13:QS system process) Next of Kin Relationship: SPO (08/06/2016 15:13:QS system process) Date of : 1985 (08/06/2016 15:13:QS system process) Marital Status: (08/06/2016 15:13:QS system process) Sex: Female (08/06/2016 15:13:QS system process) Race: (08/06/2016 15:13:QS system process) Ethnicity: Non- or (08/06/2016 15:13:QS system process) Confucianism: Presybeterian (08/06/2016 15:13:QS system process) DRUG AND ALCOHOL USE Alcohol: No (08/06/2016 15:40:Meghan Hawkins RN) Cigarettes: Never Smoker. [id number] (08/06/2016 15:40:Meghan Hawkins RN) Marijuana: No (08/06/2016 15:40:Meghan Hawkins RN) Cocaine: No (08/06/2016 15:40:Meghan Hawkins RN) Other Illicit Drugs: No (08/06/2016 15:40:Meghan Hawkins RN) VACCINE HISTORY Influenza Vaccine: No (08/06/2016 15:40:Sommer West RN) Fall Intern: [facility] (08/06/2016 15:40:Meghan Hawkins RN) Feeding Preference: Breast (08/06/2016 15:40:Meghan Hawkins RN) Benefit of Breast Feed Discussed: Yes (08/06/2016 15:40:Meghan Hawkins RN) Circumcision: Yes (08/06/2016 15:40:Meghan Hawkins RN) Classes Attended: No (08/06/2016 15:40:Meghan Hawkins RN) Tubal Ligation: No (08/06/2016 15:40:Meghan Hawkins RN) Tubal Authorization Signed: N/A (08/06/2016 15:40:Meghan Hawkins RN) Consent: N/A (08/06/2016 15:40:Meghan Hawkins RN) Consent Signed: N/A (08/06/2016 15:40:Meghan Hawkins RN) Pain Management Plans: Natural; Medications (08/06/2016 15:40:Meghan Hawkins RN) Plans for Labor and Delivery: None (08/06/2016 15:40:Allyson Saenz RN) Support Person: Facundo Ocasio (08/06/2016 15:40:Meghan Hawkins RN) Cultural/Spritual Practice: No (08/06/2016 15:40:Meghan Hawkins RN) Spir/Cult Dietary Needs: No (08/06/2016 15:40:Meghan Hawkins RN) LIVING SITUATION/DISCHARGE PLAN Living Arrangements: House (08/06/2016 15:40:Meghan Hawkins RN) Adequate Access to:: Electric; Heat; Refrigeration; Plumbing/Running water; Phone; Transportation (08/06/2016 15:40:Meghan Hawkins RN) WIC Program: Yes (08/06/2016 15:40:Meghan Hawkins RN) Discharge Hide Buyer Person: Facundo Ocasio (08/06/2016 15:40:Meghan Hawkins RN) Person to Help after Discharge: Facundo Ocasio (08/06/2016 15:40:Meghan Hawkins RN) Currently Using Commun Resources: Yes (08/06/2016 15:40:Meghan Hawkins RN) Specify Current Resource Used: Medicaid (08/06/2016 15:40:Meghan Hawkins RN) Car Seat for Discharge: Yes (08/06/2016 15:40:Meghan Hawkins RN) Adoption Requested: No (08/06/2016 15:40:Meghan Hawkins RN) Pt Contact w/infant Post : N/A (08/06/2016 15:40:Allyson Saenz RN) LABS Blood Type: O Positive (08/06/2016 15:40:Sommer West RN) Antibody Screen: Negative (08/06/2016 15:40:Sommer West RN) Rho(G) this : Not Applicable (08/06/2016 15:40:Clary Mann RN) Hemoglobin: 11.9 L (09/09/2016 12:13:QS system process) Hematocrit: 35.9 L (09/09/2016 12:13:QS system process) MCV: 83 (09/09/2016 12:13:QS system process) RPR/VDRL: Nonreactive (Annotations: Data stored by CPN on behalf of user) (08/06/2016 15:40:Sommer West RN) HIV Exposure Test: Negative (08/06/2016 15:40:Sommer West RN) HIV Results: Negative (08/06/2016 15:40:Sommer West RN) Hepatitis B: Negative (08/06/2016 15:40:Clary Mann RN) Rubella: Immune (08/06/2016 15:40:Clary Mann RN) OB/PREVIOUS HISTORY Previous Procedures: Ultrasound; NST (08/06/2016 15:40:Sommer West RN) Current Procedures: Ultrasound; NST (08/06/2016 15:40:Sommer West RN) History of Previous : No (08/06/2016 15:40:Sommer West RN) History of Gestational Diabetes: No (08/06/2016 15:40:Sommer West RN) History of PIH: Yes (08/06/2016 15:40:Sommer West RN) History of Incompetent Cervix: No (08/06/2016 15:40:Sommer West RN) History of Placenta Previa/Abrup: No (08/06/2016 15:40:Sommer West RN) History of Macrosomia: No (08/06/2016 15:40:Sommer West RN) History of IUGR: No (08/06/2016 15:40:Sommer West RN) History of Hemorrhage: No (08/06/2016 15:40:Sommer West RN) History of Loss/Stillborn: No (08/06/2016 15:40:Sommer West RN) History of : No (08/06/2016 15:40:Sommer West RN) History of D (Rh) Sensitization: No (08/06/2016 15:40:Sommer West RN) History Recurrent Loss/Stillborn: No (08/06/2016 15:40:Sommer West RN) History Depression/PP Depression: No (08/06/2016 15:40:Sommer West RN) History of Uterine Anomaly/SHAWN: No (08/06/2016 15:40:Sommer West RN) History of Infertility: No (08/06/2016 15:40:Sommer West RN) History of ART Treatment: No (08/06/2016 15:40:Sommer West RN) History of SHAWN: No (08/06/2016 15:40:Sommer West RN) Comments Obstetrical History: G1: 2010 baby girl, 39 weeks, 3 hours labor, 5 lb 4 oz, HTN G2: 2013 baby girl, 38.3 weeks, 2 hours labor, 6 lb 10 oz G3: 2014 SAB 8 weeks G4: Current; Breech 08/06; Baseline 24* protein 352 05/27 (08/06/2016 15:40:Clary Mann RN) MEDICAL HISTORY Med Hx Diabetes: No (08/06/2016 15:40:Sommer West RN) Med Hx Hypertension: No (08/06/2016 15:40:Sommer West RN) Med Hx Heart Disease: No (08/06/2016 15:40:Sommer West RN) Med Hx Autoimmune Disorder: No (08/06/2016 15:40:Sommer West RN) Med Hx Kidney Disease/UTI: No (08/06/2016 15:40:Sommer West RN) Med Hx Neurologic/Epilepsy: No (08/06/2016 15:40:Sommer West RN) Med Hx Psychiatric Disorders: No (08/06/2016 15:40:Sommer West RN) Med Hx Hepatitis/Liver Disease: No (08/06/2016 15:40:Sommer West RN) Med Hx Varicosities/Phlebitis: No (08/06/2016 15:40:Sommer West RN) Med Hx Thyroid Dysfunction: No (08/06/2016 15:40:Sommer West RN) Med Hx Trauma/Violence: No (08/06/2016 15:40:Sommer West RN) Med Hx Blood Transfusion: No (08/06/2016 15:40:Sommer West RN) Med Hx Pulmonary (Asthma,TB): No (08/06/2016 15:40:Sommer West RN) Med Hx Breast: No (08/06/2016 15:40:Sommer West RN) Med Hx WARRANTY COORDINATOR Surgery: No (08/06/2016 15:40:Sommer West RN) Med Hx Hospitalization/Surgery: No (08/06/2016 15:40:Sommer West RN) Med Hx Anesthetic Complications: No (08/06/2016 15:40:Sommer West RN) Med Hx Abnormal Pap Smear: No (08/06/2016 15:40:Sommer West RN) Other Medical Diseases: No (08/06/2016 15:40:Sommer West RN) Med Hx Significant Family Hx: No (08/06/2016 15:40:Sommer West RN) INFECTIOUS HISTORY Inf Hx Gonorrhea: No (08/06/2016 15:40:Sommer West RN) Inf Hx Chlamydia: No (08/06/2016 15:40:Sommer West RN) Inf Hx Syphilis: No (08/06/2016 15:40:Sommer West RN) Inf Hx HIV/AIDS: No (08/06/2016 15:40:Sommer West RN) Inf Hx Human Papilloma Virus: No (08/06/2016 15:40:Sommer West RN) Inf Hx Pt/Partner Genital Herpes: No (08/06/2016 15:40:Sommer West RN) Inf Hx Tuberculosis/Exposure: No (08/06/2016 15:40:Sommer West RN) Inf Hx Hepatitis B,C: No (08/06/2016 15:40:Sommer West RN) Inf Hx Rash or Viral Illness: No (08/06/2016 15:40:Sommer West RN) GENETIC HISTORY Gen Hx Age >=35 at LESLIE: No (08/06/2016 15:40:Sommer West RN) Gen Hx Thalassemia: No (08/06/2016 15:40:Sommer West RN) Gen Hx Congenital Heart Defect: No (08/06/2016 15:40:Sommer West RN) Gen Hx Neural Tube Defect: No (08/06/2016 15:40:Sommer West RN) Gen Hx Down's Syndrome: No (08/06/2016 15:40:Sommer West RN) Gen Hx Julius-Sachs: No (08/06/2016 15:40:Sommer West RN) Gen Hx Fabrice: No (08/06/2016 15:40:Sommer West RN) Gen Hx Familial Dysautonomia: No (08/06/2016 15:40:Sommer West RN) Gen Hx Sickle Cell Disease/Trait: No (08/06/2016 15:40:Sommer West RN) Gen Hx Hemophilia/Blood Disorder: No (08/06/2016 15:40:Sommer West RN) Gen Hx Muscular Dystrophy: No (08/06/2016 15:40:Sommer West RN) Gen Hx Cystic Fibrosis: No (08/06/2016 15:40:Sommer West RN) Gen Hx Huntingtons Chorea: No (08/06/2016 15:40:Sommer West RN) Gen Hx Mental Retardation/Autism: No (08/06/2016 15:40:Sommer West RN) Gen Hx Tested for Fragile X: No (08/06/2016 15:40:Sommer West RN) Gen Hx Other Inher/Chromosomal: No (08/06/2016 15:40:Sommer West RN) Gen Hx Maternal Metabolic DO: No (08/06/2016 15:40:Sommer West RN) Gen Hx Pt Father or FOB Defect: No (08/06/2016 15:40:Sommer West RN) Gen Hx Other Genetic History: No (08/06/2016 15:40:Sommer West RN) Gen Hx Drugs/Meds since LMP: No (08/06/2016 15:40:Sommer West RN)
--- NOTE | 2016-09-17 06:18 | L&D Current Admission ---
Current Admit Datetime Report Generated by CPN: 09/17/2016 06:00 ADMISSION INFORMATION Chief Complaint: PIH workup sent from [facility], [facility] ordered (09/09/2016 11:30:Shavonne Hauser RN) Medications During : Rantidine (Zantac) (08/06/2016 15:35:Sommer West RN) Meds During -Oth: PNV; Probiotics (08/06/2016 15:35:Sommer West RN) Method of Arrival: Ambulatory (08/06/2016 15:35:Sommer West RN) Admitted From: Home (08/06/2016 15:35:Sommer West RN) Records Available: Yes (08/06/2016 15:35:Sommer West RN)
--- NOTE | 2016-09-18 06:18 | L&D Current Admission ---
Current Admit Datetime Report Generated by CPN: 09/18/2016 06:00 ADMISSION INFORMATION Chief Complaint: PIH workup sent from [facility], [facility] ordered (09/09/2016 11:30:Shavonne Hauser RN) Medications During : Rantidine (Zantac) (08/06/2016 15:35:Sommer West RN) Meds During -Oth: PNV; Probiotics (08/06/2016 15:35:Sommer West RN) Method of Arrival: Ambulatory (08/06/2016 15:35:Sommer West RN) Admitted From: Home (08/06/2016 15:35:Sommer West RN) Records Available: Yes (08/06/2016 15:35:Sommer West RN)
--- NOTE | 2016-09-18 06:18 | L&D General Admission ---
General Admit Datetime Report Generated by CPN: 09/18/2016 06:00 INFORMATION Patient Age: 30 (08/06/2016 15:13:QS system process) EDC: 10/15/2016 00:00 (08/06/2016 15:40:Meghan Hawkins RN) : 4 (08/06/2016 15:40:Meghan Hawkins RN) Para: 2 (08/13/2016 21:31:Allyson Saenz RN) Term: 2 (08/06/2016 15:40:Clary Mann RN) : 0 (08/06/2016 15:40:Clary Mann RN) Spontaneous Abortions: 1 (08/06/2016 15:40:Clary Mann RN) Induced Abortions: 0 (08/06/2016 15:40:Clary Mann RN) Livin (08/06/2016 15:40:Meghan Hawkins RN) Cesareans: 0 (08/06/2016 15:40:Clary Mann RN) VBACs: 0 (08/06/2016 15:40:Clary Mann RN) Ectopic: 0 (08/06/2016 15:40:Clary Mann RN) Multiple Births: 0 (08/06/2016 15:40:Clary Mann RN) Baby, Number in Womb: 1 (09/09/2016 13:19:Shavonne Hauser RN) CARE Primary Deadener: [facility] (08/06/2016 15:40:Meghan Hawkins RN) Deadener Other: [facility] (08/06/2016 15:40:Meghan Hawkins RN) Month of 1st Visit: (08/06/2016 15:40:Clary Mann RN) Adequate Care: Yes (08/06/2016 15:40:Meghan Hawkins RN) Prepregnancy Weight (lb): 152 (08/06/2016 15:40:Clary Mann RN) Prepregnancy Weight (kg): 69.1 (08/06/2016 15:40:QS system process) Height (in): 62 (09/09/2016 11:52:QS system process) ALLERGIES Medication Allergy: Yes (08/06/2016 15:40:Meghan Hawkins RN) Medication Allergies: Penicillins/Generalized radha (09/09/2016); amoxicillin/MO/rash (09/09/2016) (09/09/2016 11:52:QS system process) Latex Allergy: No Latex Allergies (08/06/2016 15:40:Meghan Hawkins RN) Food Allergies: None (08/06/2016 15:40:Allyson Saenz RN) Environmental Allergies: None (08/06/2016 15:40:Allyson Saenz RN) COMMUNICATION Primary Language: Namibian (08/06/2016 15:40:Meghan Hawkins RN) Medical Tx Preferred Language: Namibian (08/06/2016 15:40:Allyson Saenz RN) Communication Barrier(s): None (08/06/2016 15:40:Allyson Saenz RN) DEMOGRAPHICS Address: [address] [place], [place] [id number] (08/06/2016 15:13:QS system process) Zipcode: [phone] (08/06/2016 15:13:QS system process) Home (08/06/2016 15:13:QS system process) SSN: [id number] (08/06/2016 15:13:QS system process) Next of Kin Name: FACUNDO OCASIO (08/06/2016 15:13:QS system process) Next of Kin (08/06/2016 15:13:QS system process) Next of Kin Relationship: SPO (08/06/2016 15:13:QS system process) Date of : 1985 (08/06/2016 15:13:QS system process) Marital Status: (08/06/2016 15:13:QS system process) Sex: Female (08/06/2016 15:13:QS system process) Race: (08/06/2016 15:13:QS system process) Ethnicity: Non- or (08/06/2016 15:13:QS system process) Adventism: Christianity (08/06/2016 15:13:QS system process) DRUG AND ALCOHOL USE Alcohol: No (08/06/2016 15:40:Meghan Hawkins RN) Cigarettes: Never Smoker. [id number] (08/06/2016 15:40:Meghan Hawkins RN) Marijuana: No (08/06/2016 15:40:Meghan Hawkins RN) Cocaine: No (08/06/2016 15:40:Meghan Hawkins RN) Other Illicit Drugs: No (08/06/2016 15:40:Meghan Hawkins RN) VACCINE HISTORY Influenza Vaccine: No (08/06/2016 15:40:Sommer West RN) Regular Senior Care Provider: [facility] (08/06/2016 15:40:Meghan Hawkins RN) Feeding Preference: Breast (08/06/2016 15:40:Meghan Hawkins RN) Benefit of Breast Feed Discussed: Yes (08/06/2016 15:40:Meghan Hawkins RN) Circumcision: Yes (08/06/2016 15:40:Meghan Hawkins RN) Classes Attended: No (08/06/2016 15:40:Meghan Hawkins RN) Tubal Ligation: No (08/06/2016 15:40:Meghan Hawkins RN) Tubal Authorization Signed: N/A (08/06/2016 15:40:Meghan Hawkins RN) Consent: N/A (08/06/2016 15:40:Meghan Hawkins RN) Consent Signed: N/A (08/06/2016 15:40:Meghan Hawkins RN) Pain Management Plans: Natural; Medications (08/06/2016 15:40:Meghan Hawkins RN) Plans for Labor and Delivery: None (08/06/2016 15:40:Allyson Saenz RN) Support Person: Facundo Ocasio (08/06/2016 15:40:Meghan Hawkins RN) Cultural/Spritual Practice: No (08/06/2016 15:40:Meghan Hawkins RN) Spir/Cult Dietary Needs: No (08/06/2016 15:40:Meghan Hawkins RN) LIVING SITUATION/DISCHARGE PLAN Living Arrangements: House (08/06/2016 15:40:Meghan Hawkins RN) Adequate Access to:: Electric; Heat; Refrigeration; Plumbing/Running water; Phone; Transportation (08/06/2016 15:40:Meghan Hawkins RN) WIC Program: Yes (08/06/2016 15:40:Meghan Hawkins RN) Discharge Bean Snapper Person: Facundo Ocasio (08/06/2016 15:40:Meghan Hawkins RN) Person to Help after Discharge: Facundo Ocasio (08/06/2016 15:40:Meghan Hawkins RN) Currently Using Commun Resources: Yes (08/06/2016 15:40:Meghan Hawkins RN) Specify Current Resource Used: Medicaid (08/06/2016 15:40:Meghan Hawkins RN) Car Seat for Discharge: Yes (08/06/2016 15:40:Meghan Hawkins RN) Adoption Requested: No (08/06/2016 15:40:Meghan Hawkins RN) Pt Contact w/infant Post : N/A (08/06/2016 15:40:Allyson Saenz RN) LABS Blood Type: O Positive (08/06/2016 15:40:Sommer West RN) Antibody Screen: Negative (08/06/2016 15:40:Sommer West RN) Rho(G) this : Not Applicable (08/06/2016 15:40:Clary Mann RN) Hemoglobin: 11.9 L (09/09/2016 12:13:QS system process) Hematocrit: 35.9 L (09/09/2016 12:13:QS system process) MCV: 83 (09/09/2016 12:13:QS system process) RPR/VDRL: Nonreactive (Annotations: Data stored by CPN on behalf of user) (08/06/2016 15:40:Sommer West RN) HIV Exposure Test: Negative (08/06/2016 15:40:Sommer West RN) HIV Results: Negative (08/06/2016 15:40:Sommer West RN) Hepatitis B: Negative (08/06/2016 15:40:Clary Mann RN) Rubella: Immune (08/06/2016 15:40:Clary Mann RN) OB/PREVIOUS HISTORY Previous Procedures: Ultrasound; NST (08/06/2016 15:40:Sommer West RN) Current Procedures: Ultrasound; NST (08/06/2016 15:40:Sommer West RN) History of Previous : No (08/06/2016 15:40:Sommer West RN) History of Gestational Diabetes: No (08/06/2016 15:40:Sommer West RN) History of PIH: Yes (08/06/2016 15:40:Sommer West RN) History of Incompetent Cervix: No (08/06/2016 15:40:Sommer West RN) History of Placenta Previa/Abrup: No (08/06/2016 15:40:Sommer West RN) History of Macrosomia: No (08/06/2016 15:40:Sommer West RN) History of IUGR: No (08/06/2016 15:40:Sommer West RN) History of Hemorrhage: No (08/06/2016 15:40:Sommer West RN) History of Loss/Stillborn: No (08/06/2016 15:40:Sommer West RN) History of : No (08/06/2016 15:40:Sommer West RN) History of D (Rh) Sensitization: No (08/06/2016 15:40:Sommer West RN) History Recurrent Loss/Stillborn: No (08/06/2016 15:40:Sommer West RN) History Depression/PP Depression: No (08/06/2016 15:40:Sommer West RN) History of Uterine Anomaly/SHWAN: No (08/06/2016 15:40:Sommer West RN) History of Infertility: No (08/06/2016 15:40:Sommer West RN) History of ART Treatment: No (08/06/2016 15:40:Sommer West RN) History of SHAWN: No (08/06/2016 15:40:Sommer West RN) Comments Obstetrical History: G1: 2010 baby girl, 39 weeks, 3 hours labor, 5 lb 4 oz, HTN G2: 2013 baby girl, 38.3 weeks, 2 hours labor, 6 lb 10 oz G3: 2014 SAB 8 weeks G4: Current; Breech 08/06; Baseline 24* protein 352 05/27 (08/06/2016 15:40:Clary Mann RN) MEDICAL HISTORY Med Hx Diabetes: No (08/06/2016 15:40:Sommer West RN) Med Hx Hypertension: No (08/06/2016 15:40:Sommer West RN) Med Hx Heart Disease: No (08/06/2016 15:40:Sommer West RN) Med Hx Autoimmune Disorder: No (08/06/2016 15:40:Sommer West RN) Med Hx Kidney Disease/UTI: No (08/06/2016 15:40:Sommer West RN) Med Hx Neurologic/Epilepsy: No (08/06/2016 15:40:Sommer West RN) Med Hx Psychiatric Disorders: No (08/06/2016 15:40:Sommer West RN) Med Hx Hepatitis/Liver Disease: No (08/06/2016 15:40:Sommer West RN) Med Hx Varicosities/Phlebitis: No (08/06/2016 15:40:Sommer West RN) Med Hx Thyroid Dysfunction: No (08/06/2016 15:40:Sommer West RN) Med Hx Trauma/Violence: No (08/06/2016 15:40:Sommer West RN) Med Hx Blood Transfusion: No (08/06/2016 15:40:Sommer West RN) Med Hx Pulmonary (Asthma,TB): No (08/06/2016 15:40:Sommer West RN) Med Hx Breast: No (08/06/2016 15:40:Sommer West RN) 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 (08/06/2016 15:40:Sommer West RN) Med Hx Hospitalization/Surgery: No (08/06/2016 15:40:Sommer West RN) Med Hx Anesthetic Complications: No (08/06/2016 15:40:Sommer West RN) Med Hx Abnormal Pap Smear: No (08/06/2016 15:40:Sommer West RN) Other Medical Diseases: No (08/06/2016 15:40:Sommer West RN) Med Hx Significant Family Hx: No (08/06/2016 15:40:Sommer West RN) INFECTIOUS HISTORY Inf Hx Gonorrhea: No (08/06/2016 15:40:Sommer West RN) Inf Hx Chlamydia: No (08/06/2016 15:40:Sommer West RN) Inf Hx Syphilis: No (08/06/2016 15:40:Sommer West RN) Inf Hx HIV/AIDS: No (08/06/2016 15:40:Sommer West RN) Inf Hx Human Papilloma Virus: No (08/06/2016 15:40:Sommer West RN) Inf Hx Pt/Partner Genital Herpes: No (08/06/2016 15:40:Sommer West RN) Inf Hx Tuberculosis/Exposure: No (08/06/2016 15:40:Sommer West RN) Inf Hx Hepatitis B,C: No (08/06/2016 15:40:Sommer West RN) Inf Hx Rash or Viral Illness: No (08/06/2016 15:40:Sommer West RN) GENETIC HISTORY Gen Hx Age >=35 at LESLIE: No (08/06/2016 15:40:Sommer West RN) Gen Hx Thalassemia: No (08/06/2016 15:40:Sommer West RN) Gen Hx Congenital Heart Defect: No (08/06/2016 15:40:Sommer West RN) Gen Hx Neural Tube Defect: No (08/06/2016 15:40:Sommer West RN) Gen Hx Down's Syndrome: No (08/06/2016 15:40:Sommer West RN) Gen Hx Julius-Sachs: No (08/06/2016 15:40:Sommer West RN) Gen Hx Fabrice: No (08/06/2016 15:40:Sommer West RN) Gen Hx Familial Dysautonomia: No (08/06/2016 15:40:Sommer West RN) Gen Hx Sickle Cell Disease/Trait: No (08/06/2016 15:40:Sommer West RN) Gen Hx Hemophilia/Blood Disorder: No (08/06/2016 15:40:Sommer West RN) Gen Hx Muscular Dystrophy: No (08/06/2016 15:40:Sommer West RN) Gen Hx Cystic Fibrosis: No (08/06/2016 15:40:Sommer West RN) Gen Hx Huntingtons Chorea: No (08/06/2016 15:40:Sommer West RN) Gen Hx Mental Retardation/Autism: No (08/06/2016 15:40:Sommer West RN) Gen Hx Tested for Fragile X: No (08/06/2016 15:40:Sommer West RN) Gen Hx Other Inher/Chromosomal: No (08/06/2016 15:40:Sommer West RN) Gen Hx Maternal Metabolic DO: No (08/06/2016 15:40:Sommer West RN) Gen Hx Pt Father or FOB Defect: No (08/06/2016 15:40:Sommer West RN) Gen Hx Other Genetic History: No (08/06/2016 15:40:Sommer West RN) Gen Hx Drugs/Meds since LMP: No (08/06/2016 15:40:Sommer West RN)
--- NOTE | 2016-09-19 06:15 | L&D General Admission ---
General Admit Datetime Report Generated by CPN: 09/19/2016 06:00 INFORMATION Patient Age: 30 (08/06/2016 15:13:QS system process) EDC: 10/15/2016 00:00 (08/06/2016 15:40:Meghan Hawkins RN) : 4 (08/06/2016 15:40:Meghan Hawkins RN) Para: 2 (08/13/2016 21:31:Allyson Saenz RN) Term: 2 (08/06/2016 15:40:Clary Mann RN) : 0 (08/06/2016 15:40:Clary Mann RN) Spontaneous Abortions: 1 (08/06/2016 15:40:Clary Mann RN) Induced Abortions: 0 (08/06/2016 15:40:Clary Mann RN) Livin (08/06/2016 15:40:Meghan Hawkins RN) Cesareans: 0 (08/06/2016 15:40:Clary Mann RN) VBACs: 0 (08/06/2016 15:40:Clary Mann RN) Ectopic: 0 (08/06/2016 15:40:Clary Mann RN) Multiple Births: 0 (08/06/2016 15:40:Clary Mann RN) Baby, Number in Womb: 1 (09/09/2016 13:19:Shavonne Hauser RN) CARE Primary Film Crew Member: [facility] (08/06/2016 15:40:Meghan Hawkins RN) Film Crew Member Other: [facility] (08/06/2016 15:40:Meghan Hawkins RN) Month of 1st Visit: (08/06/2016 15:40:lCary Mann RN) Adequate Care: Yes (08/06/2016 15:40:Meghan Hawkins RN) Prepregnancy Weight (lb): 152 (08/06/2016 15:40:Clary Mann RN) Prepregnancy Weight (kg): 69.1 (08/06/2016 15:40:QS system process) Height (in): 62 (09/09/2016 11:52:QS system process) ALLERGIES Medication Allergy: Yes (08/06/2016 15:40:Meghan Hawkins RN) Medication Allergies: Penicillins/Generalized radha (09/09/2016); amoxicillin/[place]/rash (09/09/2016) (09/09/2016 11:52:QS system process) Latex Allergy: No Latex Allergies (08/06/2016 15:40:Meghan Hawkins RN) Food Allergies: None (08/06/2016 15:40:Allyson Saenz RN) Environmental Allergies: None (08/06/2016 15:40:Allyson Saenz RN) COMMUNICATION Primary Language: Cymro (08/06/2016 15:40:Meghan Hawkins RN) Medical Tx Preferred Language: Cymro (08/06/2016 15:40:Allyson Saenz RN) Communication Barrier(s): None (08/06/2016 15:40:Allyson Saenz RN) DEMOGRAPHICS Address: [address] [place], [place] [id number] (08/06/2016 15:13:QS system process) Zipcode: [id number] (08/06/2016 15:13:QS system process) Home (08/06/2016 15:13:QS system process) SSN: [id number] (08/06/2016 15:13:QS system process) Next of Kin Name: FACUNDO OCASIO (08/06/2016 15:13:QS system process) Next of Kin (08/06/2016 15:13:QS system process) Next of Kin Relationship: SPO (08/06/2016 15:13:QS system process) Date of : 1985 (08/06/2016 15:13:QS system process) Marital Status: (08/06/2016 15:13:QS system process) Sex: Female (08/06/2016 15:13:QS system process) Race: (08/06/2016 15:13:QS system process) Ethnicity: Non- or (08/06/2016 15:13:QS system process) Zoroastrianism: Druze (08/06/2016 15:13:QS system process) DRUG AND ALCOHOL USE Alcohol: No (08/06/2016 15:40:Mgehan Hawkins RN) Cigarettes: Never Smoker. [id number] (08/06/2016 15:40:Meghan Hawkins RN) Marijuana: No (08/06/2016 15:40:Meghan Hawkins RN) Cocaine: No (08/06/2016 15:40:Meghan Hawkins RN) Other Illicit Drugs: No (08/06/2016 15:40:Meghan Hawkins RN) VACCINE HISTORY Influenza Vaccine: No (08/06/2016 15:40:Sommer West RN) Grainer Machine: [facility] (08/06/2016 15:40:Meghan Hawkins RN) Feeding Preference: Breast (08/06/2016 15:40:Meghan Hawkins RN) Benefit of Breast Feed Discussed: Yes (08/06/2016 15:40:Meghan Hawkins RN) Circumcision: Yes (08/06/2016 15:40:Meghan Hawkins RN) Classes Attended: No (08/06/2016 15:40:Meghan Hawkins RN) Tubal Ligation: No (08/06/2016 15:40:Meghan Hawkins RN) Tubal Authorization Signed: N/A (08/06/2016 15:40:Meghan Hawkins RN) Consent: N/A (08/06/2016 15:40:Meghan Hawkins RN) Consent Signed: N/A (08/06/2016 15:40:Meghan Hawkins RN) Pain Management Plans: Natural; Medications (08/06/2016 15:40:Meghan Hawkins RN) Plans for Labor and Delivery: None (08/06/2016 15:40:Allyson Saenz RN) Support Person: Facundo Ocasio (08/06/2016 15:40:Meghan Hawkins RN) Cultural/Spritual Practice: No (08/06/2016 15:40:Meghan Hawkins RN) Spir/Cult Dietary Needs: No (08/06/2016 15:40:Meghan Hawkins RN) LIVING SITUATION/DISCHARGE PLAN Living Arrangements: House (08/06/2016 15:40:Meghan Hawkins RN) Adequate Access to:: Electric; Heat; Refrigeration; Plumbing/Running water; Phone; Transportation (08/06/2016 15:40:Meghan Hawkins RN) WIC Program: Yes (08/06/2016 15:40:Meghan Hawkins RN) Discharge Impregnator And Drier Person: Facundo Ocasio (08/06/2016 15:40:Meghan Hawkins RN) Person to Help after Discharge: Facundo Ocasio (08/06/2016 15:40:Meghan Hawkins RN) Currently Using Commun Resources: Yes (08/06/2016 15:40:Meghan Hawkins RN) Specify Current Resource Used: Medicaid (08/06/2016 15:40:Meghan Hawkins RN) Car Seat for Discharge: Yes (08/06/2016 15:40:Meghan Hawkins RN) Adoption Requested: No (08/06/2016 15:40:Meghan Hawkins RN) Pt Contact w/infant Post : N/A (08/06/2016 15:40:Allyson Saenz RN) LABS Blood Type: O Positive (08/06/2016 15:40:Sommer West RN) Antibody Screen: Negative (08/06/2016 15:40:Sommer West RN) Rho(G) this : Not Applicable (08/06/2016 15:40:Calry Mann RN) Hemoglobin: 11.9 L (09/09/2016 12:13:QS system process) Hematocrit: 35.9 L (09/09/2016 12:13:QS system process) MCV: 83 (09/09/2016 12:13:QS system process) RPR/VDRL: Nonreactive (Annotations: Data stored by CPN on behalf of user) (08/06/2016 15:40:Sommer West RN) HIV Exposure Test: Negative (08/06/2016 15:40:Sommer West RN) HIV Results: Negative (08/06/2016 15:40:Sommer West RN) Hepatitis B: Negative (08/06/2016 15:40:Clary Mann RN) Rubella: Immune (08/06/2016 15:40:Clary Mann RN) OB/PREVIOUS HISTORY Previous Procedures: Ultrasound; NST (08/06/2016 15:40:Sommer West RN) Current Procedures: Ultrasound; NST (08/06/2016 15:40:Sommer West RN) History of Previous : No (08/06/2016 15:40:Sommer West RN) History of Gestational Diabetes: No (08/06/2016 15:40:Sommer West RN) History of PIH: Yes (08/06/2016 15:40:Sommer West RN) History of Incompetent Cervix: No (08/06/2016 15:40:Sommer West RN) History of Placenta Previa/Abrup: No (08/06/2016 15:40:Sommer West RN) History of Macrosomia: No (08/06/2016 15:40:Sommer West RN) History of IUGR: No (08/06/2016 15:40:Sommer West RN) History of Hemorrhage: No (08/06/2016 15:40:Sommer West RN) History of Loss/Stillborn: No (08/06/2016 15:40:Sommer West RN) History of : No (08/06/2016 15:40:Sommer West RN) History of D (Rh) Sensitization: No (08/06/2016 15:40:Sommer West RN) History Recurrent Loss/Stillborn: No (08/06/2016 15:40:Sommer West RN) History Depression/PP Depression: No (08/06/2016 15:40:Sommer West RN) History of Uterine Anomaly/SHAWN: No (08/06/2016 15:40:Sommer West RN) History of Infertility: No (08/06/2016 15:40:Sommer West RN) History of ART Treatment: No (08/06/2016 15:40:Sommer West RN) History of SHAWN: No (08/06/2016 15:40:Sommer West RN) Comments Obstetrical History: G1: 2010 baby girl, 39 weeks, 3 hours labor, 5 lb 4 oz, HTN G2: 2013 baby girl, 38.3 weeks, 2 hours labor, 6 lb 10 oz G3: 2014 SAB 8 weeks G4: Current; Breech 08/06; Baseline 24* protein 352 05/27 (08/06/2016 15:40:Clary Mann RN) MEDICAL HISTORY Med Hx Diabetes: No (08/06/2016 15:40:Sommer West RN) Med Hx Hypertension: No (08/06/2016 15:40:Sommer West RN) Med Hx Heart Disease: No (08/06/2016 15:40:Sommer West RN) Med Hx Autoimmune Disorder: No (08/06/2016 15:40:Sommer West RN) Med Hx Kidney Disease/UTI: No (08/06/2016 15:40:Sommer West RN) Med Hx Neurologic/Epilepsy: No (08/06/2016 15:40:Sommer West RN) Med Hx Psychiatric Disorders: No (08/06/2016 15:40:Sommer West RN) Med Hx Hepatitis/Liver Disease: No (08/06/2016 15:40:Sommer eWst RN) Med Hx Varicosities/Phlebitis: No (08/06/2016 15:40:Sommer West RN) Med Hx Thyroid Dysfunction: No (08/06/2016 15:40:Sommer West RN) Med Hx Trauma/Violence: No (08/06/2016 15:40:Sommer West RN) Med Hx Blood Transfusion: No (08/06/2016 15:40:Sommer West RN) Med Hx Pulmonary (Asthma,TB): No (08/06/2016 15:40:Sommer West RN) Med Hx Breast: No (08/06/2016 15:40:Sommer West RN) 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 Surgery: No (08/06/2016 15:40:Sommer West RN) Med Hx Hospitalization/Surgery: No (08/06/2016 15:40:Sommer West RN) Med Hx Anesthetic Complications: No (08/06/2016 15:40:Sommer West RN) Med Hx Abnormal Pap Smear: No (08/06/2016 15:40:Sommer West RN) Other Medical Diseases: No (08/06/2016 15:40:Sommer West RN) Med Hx Significant Family Hx: No (08/06/2016 15:40:Sommer West RN) INFECTIOUS HISTORY Inf Hx Gonorrhea: No (08/06/2016 15:40:Sommer West RN) Inf Hx Chlamydia: No (08/06/2016 15:40:Sommer West RN) Inf Hx Syphilis: No (08/06/2016 15:40:Sommer West RN) Inf Hx HIV/AIDS: No (08/06/2016 15:40:Sommer West RN) Inf Hx Human Papilloma Virus: No (08/06/2016 15:40:Sommer West RN) Inf Hx Pt/Partner Genital Herpes: No (08/06/2016 15:40:Sommer West RN) Inf Hx Tuberculosis/Exposure: No (08/06/2016 15:40:Sommer West RN) Inf Hx Hepatitis B,C: No (08/06/2016 15:40:Sommer West RN) Inf Hx Rash or Viral Illness: No (08/06/2016 15:40:Sommer West RN) GENETIC HISTORY Gen Hx Age >=35 at LESLIE: No (08/06/2016 15:40:Sommer West RN) Gen Hx Thalassemia: No (08/06/2016 15:40:Sommer West RN) Gen Hx Congenital Heart Defect: No (08/06/2016 15:40:Sommer West RN) Gen Hx Neural Tube Defect: No (08/06/2016 15:40:Sommer West RN) Gen Hx Down's Syndrome: No (08/06/2016 15:40:Sommer West RN) Gen Hx Julius-Sachs: No (08/06/2016 15:40:Sommer West RN) Gen Hx Fabrice: No (08/06/2016 15:40:Sommer West RN) Gen Hx Familial Dysautonomia: No (08/06/2016 15:40:Sommer West RN) Gen Hx Sickle Cell Disease/Trait: No (08/06/2016 15:40:Sommer West RN) Gen Hx Hemophilia/Blood Disorder: No (08/06/2016 15:40:Sommer West RN) Gen Hx Muscular Dystrophy: No (08/06/2016 15:40:Sommer West RN) Gen Hx Cystic Fibrosis: No (08/06/2016 15:40:Sommer West RN) Gen Hx Huntingtons Chorea: No (08/06/2016 15:40:Sommer West RN) Gen Hx Mental Retardation/Autism: No (08/06/2016 15:40:Sommer West RN) Gen Hx Tested for Fragile X: No (08/06/2016 15:40:Sommer West RN) Gen Hx Other Inher/Chromosomal: No (08/06/2016 15:40:Sommer West RN) Gen Hx Maternal Metabolic DO: No (08/06/2016 15:40:Sommer West RN) Gen Hx Pt Father or FOB Defect: No (08/06/2016 15:40:Sommer West RN) Gen Hx Other Genetic History: No (08/06/2016 15:40:Sommer West RN) Gen Hx Drugs/Meds since LMP: No (08/06/2016 15:40:Sommer West RN)
--- NOTE | 2016-09-19 06:15 | L&D Current Admission ---
Current Admit Datetime Report Generated by CPN: 09/19/2016 06:00 ADMISSION INFORMATION Chief Complaint: PIH workup sent from [facility], [facility] ordered (09/09/2016 11:30:Shavonne Hauser RN) Medications During : Rantidine (Zantac) (08/06/2016 15:35:Sommer West RN) Meds During -Oth: PNV; Probiotics (08/06/2016 15:35:Sommer West RN) Method of Arrival: Ambulatory (08/06/2016 15:35:Sommer Wets RN) Admitted From: Home (08/06/2016 15:35:Sommer West RN) Records Available: Yes (08/06/2016 15:35:Sommer West RN)
--- NOTE | 2016-09-20 06:16 | L&D General Admission ---
General Admit Datetime Report Generated by CPN: 09/20/2016 06:00 INFORMATION Patient Age: 30 (08/06/2016 15:13:QS system process) EDC: 10/15/2016 00:00 (08/06/2016 15:40:Meghan Hawkins RN) : 4 (08/06/2016 15:40:Meghan Hawkins RN) Para: 2 (08/13/2016 21:31:Allyson Saenz RN) Term: 2 (08/06/2016 15:40:Clary Mann RN) : 0 (08/06/2016 15:40:Clary Mann RN) Spontaneous Abortions: 1 (08/06/2016 15:40:Clary Mann RN) Induced Abortions: 0 (08/06/2016 15:40:Clary Mann RN) Livin (08/06/2016 15:40:Meghan Hawkins RN) Cesareans: 0 (08/06/2016 15:40:Clary Mann RN) VBACs: 0 (08/06/2016 15:40:Clary Mann RN) Ectopic: 0 (08/06/2016 15:40:Clary Mann RN) Multiple Births: 0 (08/06/2016 15:40:Clary Mann RN) Baby, Number in Womb: 1 (09/09/2016 13:19:Shavonne Hauser RN) CARE Primary Supervisor Pumping: [facility] (08/06/2016 15:40:Meghan Hawkins RN) Supervisor Pumping Other: [facility] (08/06/2016 15:40:Meghan Hawkins RN) Month of 1st Visit: (08/06/2016 15:40:Clary Mann RN) Adequate Care: Yes (08/06/2016 15:40:Meghan Hakwins RN) Prepregnancy Weight (lb): 152 (08/06/2016 15:40:Clary Mann RN) Prepregnancy Weight (kg): 69.1 (08/06/2016 15:40:QS system process) Height (in): 62 (09/09/2016 11:52:QS system process) ALLERGIES Medication Allergy: Yes (08/06/2016 15:40:Meghan Hawkins RN) Medication Allergies: Penicillins/Generalized radha (09/09/2016); amoxicillin/[place]/rash (09/09/2016) (09/09/2016 11:52:QS system process) Latex Allergy: No Latex Allergies (08/06/2016 15:40:Meghan Hawkins RN) Food Allergies: None (08/06/2016 15:40:Allyson Saenz RN) Environmental Allergies: None (08/06/2016 15:40:Allyson Saenz RN) COMMUNICATION Primary Language: Hungarian (08/06/2016 15:40:Meghan Hawkins RN) Medical Tx Preferred Language: Hungarian (08/06/2016 15:40:Allyson Saenz RN) Communication Barrier(s): None (08/06/2016 15:40:Allyson Saenz RN) DEMOGRAPHICS Address: [address] [place], [place] [id number] (08/06/2016 15:13:QS system process) Zipcode: [address] (08/06/2016 15:13:QS system process) Home (08/06/2016 15:13:QS system process) SSN: [id number] (08/06/2016 15:13:QS system process) Next of Kin Name: FACUNDO OCASIO (08/06/2016 15:13:QS system process) Next of Kin (08/06/2016 15:13:QS system process) Next of Kin Relationship: SPO (08/06/2016 15:13:QS system process) Date of : 1985 (08/06/2016 15:13:QS system process) Marital Status: (08/06/2016 15:13:QS system process) Sex: Female (08/06/2016 15:13:QS system process) Race: (08/06/2016 15:13:QS system process) Ethnicity: Non- or (08/06/2016 15:13:QS system process) Baptism: Synagogue (08/06/2016 15:13:QS system process) DRUG AND ALCOHOL USE Alcohol: No (08/06/2016 15:40:Meghan Hawkins RN) Cigarettes: Never Smoker. [id number] (08/06/2016 15:40:Meghan Hawkins RN) Marijuana: No (08/06/2016 15:40:Meghan Hawkins RN) Cocaine: No (08/06/2016 15:40:Meghan Hawkins RN) Other Illicit Drugs: No (08/06/2016 15:40:Meghan Hawkins RN) VACCINE HISTORY Influenza Vaccine: No (08/06/2016 15:40:Sommer West RN) International Banker: [facility] (08/06/2016 15:40:Meghan Hawkins RN) Feeding Preference: Breast (08/06/2016 15:40:Meghan Hawkins RN) Benefit of Breast Feed Discussed: Yes (08/06/2016 15:40:Meghan Hawkins RN) Circumcision: Yes (08/06/2016 15:40:Meghan Hawkins RN) Classes Attended: No (08/06/2016 15:40:Meghan Hawkins RN) Tubal Ligation: No (08/06/2016 15:40:Meghan Hawkins RN) Tubal Authorization Signed: N/A (08/06/2016 15:40:Meghan Hawkins RN) Consent: N/A (08/06/2016 15:40:Meghan Hawkins RN) Consent Signed: N/A (08/06/2016 15:40:Meghan Hawkins RN) Pain Management Plans: Natural; Medications (08/06/2016 15:40:Meghan Hawkins RN) Plans for Labor and Delivery: None (08/06/2016 15:40:Allyson Saenz RN) Support Person: Facundo Ocasio (08/06/2016 15:40:Meghan Hawkins RN) Cultural/Spritual Practice: No (08/06/2016 15:40:Meghan Hawkins RN) Spir/Cult Dietary Needs: No (08/06/2016 15:40:Meghan Hawkins RN) LIVING SITUATION/DISCHARGE PLAN Living Arrangements: House (08/06/2016 15:40:Meghan Hawkins RN) Adequate Access to:: Electric; Heat; Refrigeration; Plumbing/Running water; Phone; Transportation (08/06/2016 15:40:Meghan Hawkins RN) WIC Program: Yes (08/06/2016 15:40:Meghan Hawkins RN) Discharge Access Rn Person: Facundo Ocasio (08/06/2016 15:40:Meghan Hawkins RN) Person to Help after Discharge: Facundo Ocasio (08/06/2016 15:40:Meghan Hawkins RN) Currently Using Commun Resources: Yes (08/06/2016 15:40:Meghan Hawkins RN) Specify Current Resource Used: Medicaid (08/06/2016 15:40:Meghan Hawkins RN) Car Seat for Discharge: Yes (08/06/2016 15:40:Meghan Hawkins RN) Adoption Requested: No (08/06/2016 15:40:Meghan Hawkins RN) Pt Contact w/infant Post : N/A (08/06/2016 15:40:Allyson Saenz RN) LABS Blood Type: O Positive (08/06/2016 15:40:Sommer West RN) Antibody Screen: Negative (08/06/2016 15:40:Sommer West RN) Rho(G) this : Not Applicable (08/06/2016 15:40:Clary Mann RN) Hemoglobin: 11.9 L (09/09/2016 12:13:QS system process) Hematocrit: 35.9 L (09/09/2016 12:13:QS system process) MCV: 83 (09/09/2016 12:13:QS system process) RPR/VDRL: Nonreactive (Annotations: Data stored by CPN on behalf of user) (08/06/2016 15:40:Sommer West RN) HIV Exposure Test: Negative (08/06/2016 15:40:Sommer West RN) HIV Results: Negative (08/06/2016 15:40:Sommer West RN) Hepatitis B: Negative (08/06/2016 15:40:Clary Mann RN) Rubella: Immune (08/06/2016 15:40:Clary Mann RN) OB/PREVIOUS HISTORY Previous Procedures: Ultrasound; NST (08/06/2016 15:40:Sommer West RN) Current Procedures: Ultrasound; NST (08/06/2016 15:40:Sommer West RN) History of Previous : No (08/06/2016 15:40:Sommer West RN) History of Gestational Diabetes: No (08/06/2016 15:40:Sommer West RN) History of PIH: Yes (08/06/2016 15:40:Sommer West RN) History of Incompetent Cervix: No (08/06/2016 15:40:Sommer West RN) History of Placenta Previa/Abrup: No (08/06/2016 15:40:Sommer West RN) History of Macrosomia: No (08/06/2016 15:40:Sommer West RN) History of IUGR: No (08/06/2016 15:40:Sommer West RN) History of Hemorrhage: No (08/06/2016 15:40:Sommer West RN) History of Loss/Stillborn: No (08/06/2016 15:40:Sommer West RN) History of : No (08/06/2016 15:40:Sommer West RN) History of D (Rh) Sensitization: No (08/06/2016 15:40:Sommer West RN) History Recurrent Loss/Stillborn: No (08/06/2016 15:40:Sommer West RN) History Depression/PP Depression: No (08/06/2016 15:40:Sommer West RN) History of Uterine Anomaly/SHAWN: No (08/06/2016 15:40:Sommer West RN) History of Infertility: No (08/06/2016 15:40:Sommer West RN) History of ART Treatment: No (08/06/2016 15:40:Sommer West RN) History of SHAWN: No (08/06/2016 15:40:Sommer West RN) Comments Obstetrical History: G1: 2010 baby girl, 39 weeks, 3 hours labor, 5 lb 4 oz, HTN G2: 2013 baby girl, 38.3 weeks, 2 hours labor, 6 lb 10 oz G3: 2014 SAB 8 weeks G4: Current; Breech 08/06; Baseline 24* protein 352 05/27 (08/06/2016 15:40:Clary Mann RN) MEDICAL HISTORY Med Hx Diabetes: No (08/06/2016 15:40:Sommer West RN) Med Hx Hypertension: No (08/06/2016 15:40:Sommer West RN) Med Hx Heart Disease: No (08/06/2016 15:40:Sommer West RN) Med Hx Autoimmune Disorder: No (08/06/2016 15:40:Sommer Wets RN) Med Hx Kidney Disease/UTI: No (08/06/2016 15:40:Sommer West RN) Med Hx Neurologic/Epilepsy: No (08/06/2016 15:40:Sommer West RN) Med Hx Psychiatric Disorders: No (08/06/2016 15:40:Sommer West RN) Med Hx Hepatitis/Liver Disease: No (08/06/2016 15:40:Sommer West RN) Med Hx Varicosities/Phlebitis: No (08/06/2016 15:40:Sommer West RN) Med Hx Thyroid Dysfunction: No (08/06/2016 15:40:Sommer West RN) Med Hx Trauma/Violence: No (08/06/2016 15:40:Sommer West RN) Med Hx Blood Transfusion: No (08/06/2016 15:40:Sommer West RN) Med Hx Pulmonary (Asthma,TB): No (08/06/2016 15:40:Sommer West RN) Med Hx Breast: No (08/06/2016 15:40:Sommer West RN) Med Hx ROUTE SALESPERSON Surgery: No (08/06/2016 15:40:Sommer West RN) Med Hx Hospitalization/Surgery: No (08/06/2016 15:40:Sommer West RN) Med Hx Anesthetic Complications: No (08/06/2016 15:40:Sommer West RN) Med Hx Abnormal Pap Smear: No (08/06/2016 15:40:Sommer West RN) Other Medical Diseases: No (08/06/2016 15:40:Sommer West RN) Med Hx Significant Family Hx: No (08/06/2016 15:40:Sommer West RN) INFECTIOUS HISTORY Inf Hx Gonorrhea: No (08/06/2016 15:40:Sommer West RN) Inf Hx Chlamydia: No (08/06/2016 15:40:Sommer West RN) Inf Hx Syphilis: No (08/06/2016 15:40:Sommer West RN) Inf Hx HIV/AIDS: No (08/06/2016 15:40:Sommer West RN) Inf Hx Human Papilloma Virus: No (08/06/2016 15:40:Sommer West RN) Inf Hx Pt/Partner Genital Herpes: No (08/06/2016 15:40:Sommer West RN) Inf Hx Tuberculosis/Exposure: No (08/06/2016 15:40:Sommer West RN) Inf Hx Hepatitis B,C: No (08/06/2016 15:40:Sommer West RN) Inf Hx Rash or Viral Illness: No (08/06/2016 15:40:Sommer West RN) GENETIC HISTORY Gen Hx Age >=35 at LESLIE: No (08/06/2016 15:40:Sommer West RN) Gen Hx Thalassemia: No (08/06/2016 15:40:Sommer West RN) Gen Hx Congenital Heart Defect: No (08/06/2016 15:40:Sommer West RN) Gen Hx Neural Tube Defect: No (08/06/2016 15:40:Sommer West RN) Gen Hx Down's Syndrome: No (08/06/2016 15:40:Sommer West RN) Gen Hx Julius-Sachs: No (08/06/2016 15:40:Sommer West RN) Gen Hx Fabrice: No (08/06/2016 15:40:Sommer West RN) Gen Hx Familial Dysautonomia: No (08/06/2016 15:40:Sommer West RN) Gen Hx Sickle Cell Disease/Trait: No (08/06/2016 15:40:Sommer West RN) Gen Hx Hemophilia/Blood Disorder: No (08/06/2016 15:40:Sommer West RN) Gen Hx Muscular Dystrophy: No (08/06/2016 15:40:Sommer West RN) Gen Hx Cystic Fibrosis: No (08/06/2016 15:40:Sommer West RN) Gen Hx Huntingtons Chorea: No (08/06/2016 15:40:Sommer West RN) Gen Hx Mental Retardation/Autism: No (08/06/2016 15:40:Sommer West RN) Gen Hx Tested for Fragile X: No (08/06/2016 15:40:Sommer West RN) Gen Hx Other Inher/Chromosomal: No (08/06/2016 15:40:Sommer West RN) Gen Hx Maternal Metabolic DO: No (08/06/2016 15:40:Sommer West RN) Gen Hx Pt Father or FOB Defect: No (08/06/2016 15:40:Sommer West RN) Gen Hx Other Genetic History: No (08/06/2016 15:40:Sommer West RN) Gen Hx Drugs/Meds since LMP: No (08/06/2016 15:40:Sommer West RN)
--- NOTE | 2016-09-20 06:16 | L&D Current Admission ---
Current Admit Datetime Report Generated by CPN: 09/20/2016 06:00 ADMISSION INFORMATION Chief Complaint: PIH workup sent from [facility], [facility] ordered (09/09/2016 11:30:Shavonne Hauser RN) Medications During : Rantidine (Zantac) (08/06/2016 15:35:Sommer West RN) Meds During -Oth: PNV; Probiotics (08/06/2016 15:35:Sommer West RN) Method of Arrival: Ambulatory (08/06/2016 15:35:Sommer West RN) Admitted From: Home (08/06/2016 15:35:Sommer West RN) Records Available: Yes (08/06/2016 15:35:Sommer West RN)
--- NOTE | 2016-09-21 06:15 | L&D Current Admission ---
Current Admit Datetime Report Generated by CPN: 09/21/2016 06:00 ADMISSION INFORMATION Chief Complaint: [facility] workup sent from [facility], [facility] ordered (09/09/2016 11:30:Shavonne Hauser RN) Medications During : Rantidine (Zantac) (08/06/2016 15:35:Sommer West RN) Meds During -Oth: PNV; Probiotics (08/06/2016 15:35:Sommer West RN) Method of Arrival: Ambulatory (08/06/2016 15:35:Sommer West RN) Admitted From: Home (08/06/2016 15:35:Sommer West RN) Records Available: Yes (08/06/2016 15:35:Sommer West RN)
--- NOTE | 2016-09-21 06:15 | L&D General Admission ---
General Admit Datetime Report Generated by CPN: 09/21/2016 06:00 INFORMATION Patient Age: 30 (08/06/2016 15:13:QS system process) EDC: 10/15/2016 00:00 (08/06/2016 15:40:Meghan Hawkins RN) : 4 (08/06/2016 15:40:Meghan Hawkins RN) Para: 2 (08/13/2016 21:31:Allyson Saenz RN) Term: 2 (08/06/2016 15:40:Clary Mann RN) : 0 (08/06/2016 15:40:Clary Mann RN) Spontaneous Abortions: 1 (08/06/2016 15:40:Clary Mann RN) Induced Abortions: 0 (08/06/2016 15:40:Clary Mann RN) Livin (08/06/2016 15:40:Meghan Hawkins RN) Cesareans: 0 (08/06/2016 15:40:Clary Mann RN) VBACs: 0 (08/06/2016 15:40:Clary Mann RN) Ectopic: 0 (08/06/2016 15:40:Clary Mann RN) Multiple Births: 0 (08/06/2016 15:40:Clary Mann RN) Baby, Number in Womb: 1 (09/09/2016 13:19:Shavonne Hauser RN) CARE Primary Architectural Project Manager: [facility] (08/06/2016 15:40:Meghan Hawkins RN) Architectural Project Manager Other: [facility] (08/06/2016 15:40:Meghan Hawkins RN) Month of 1st Visit: (08/06/2016 15:40:Clary Mann RN) Adequate Care: Yes (08/06/2016 15:40:Meghan Hawkins RN) Prepregnancy Weight (lb): 152 (08/06/2016 15:40:Clary Mann RN) Prepregnancy Weight (kg): 69.1 (08/06/2016 15:40:QS system process) Height (in): 62 (09/09/2016 11:52:QS system process) ALLERGIES Medication Allergy: Yes (08/06/2016 15:40:Meghan Hawkins RN) Medication Allergies: Penicillins/Generalized radha (09/09/2016); amoxicillin/PA/rash (09/09/2016) (09/09/2016 11:52:QS system process) Latex Allergy: No Latex Allergies (08/06/2016 15:40:Meghan Hawkins RN) Food Allergies: None (08/06/2016 15:40:Allyson Saenz RN) Environmental Allergies: None (08/06/2016 15:40:Allyson Saenz RN) COMMUNICATION Primary Language: Tristanian (08/06/2016 15:40:Meghan Hawkins RN) Medical Tx Preferred Language: Tristanian (08/06/2016 15:40:Allyson Saenz RN) Communication Barrier(s): None (08/06/2016 15:40:Allyson Saenz RN) DEMOGRAPHICS Address: [address] [place], [place] [id number] (08/06/2016 15:13:QS system process) Zipcode: [address] (08/06/2016 15:13:QS system process) Home (08/06/2016 15:13:QS system process) SSN: [id number] (08/06/2016 15:13:QS system process) Next of Kin Name: FACUNDO OCASIO (08/06/2016 15:13:QS system process) Next of Kin (08/06/2016 15:13:QS system process) Next of Kin Relationship: SPO (08/06/2016 15:13:QS system process) Date of : 1985 (08/06/2016 15:13:QS system process) Marital Status: (08/06/2016 15:13:QS system process) Sex: Female (08/06/2016 15:13:QS system process) Race: (08/06/2016 15:13:QS system process) Ethnicity: Non- or (08/06/2016 15:13:QS system process) Alevism: Moravian (08/06/2016 15:13:QS system process) DRUG AND ALCOHOL USE Alcohol: No (08/06/2016 15:40:Meghan Hawkins RN) Cigarettes: Never Smoker. 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: [facility] (08/06/2016 15:40:Meghan Hawkins RN) Feeding Preference: Breast (08/06/2016 15:40:Meghan Hawkins RN) Benefit of Breast Feed Discussed: Yes (08/06/2016 15:40:Meghan Hawkins RN) Circumcision: Yes (08/06/2016 15:40:Meghan Hawkins RN) Classes Attended: No (08/06/2016 15:40:Meghan Hawkins RN) Tubal Ligation: No (08/06/2016 15:40:Meghan Hawkins RN) Tubal Authorization Signed: N/A (08/06/2016 15:40:Meghan Hawkins RN) Consent: N/A (08/06/2016 15:40:Meghan Hawkins RN) Consent Signed: N/A (08/06/2016 15:40:Meghan Hawkins RN) Pain Management Plans: Natural; Medications (08/06/2016 15:40:Meghan Hawkins RN) Plans for Labor and Delivery: None (08/06/2016 15:40:Allyson Saenz RN) Support Person: Facundo Ocasio (08/06/2016 15:40:Meghan Hawkins RN) Cultural/Spritual Practice: No (08/06/2016 15:40:Meghan Hawkins RN) Spir/Cult Dietary Needs: No (08/06/2016 15:40:Meghan Hawkins RN) LIVING SITUATION/DISCHARGE PLAN Living Arrangements: House (08/06/2016 15:40:Meghan Hawkins RN) Adequate Access to:: Electric; Heat; Refrigeration; Plumbing/Running water; Phone; Transportation (08/06/2016 15:40:Meghan Hawkins RN) WIC Program: Yes (08/06/2016 15:40:Meghan Hawkins RN) Discharge Radiology Technician Person: Facundo Ocasio (08/06/2016 15:40:Meghan Hawkins RN) Person to Help after Discharge: Facundo Ocasio (08/06/2016 15:40:Meghan Hawkins RN) Currently Using Commun Resources: Yes (08/06/2016 15:40:Meghan Hawkins RN) Specify Current Resource Used: Medicaid (08/06/2016 15:40:Meghan Hawkins RN) Car Seat for Discharge: Yes (08/06/2016 15:40:Meghan Hawkins RN) Adoption Requested: No (08/06/2016 15:40:Meghan Hawkins RN) Pt Contact w/infant Post : N/A (08/06/2016 15:40:Allyson Saenz RN) LABS Blood Type: O Positive (08/06/2016 15:40:Sommer West RN) Antibody Screen: Negative (08/06/2016 15:40:Sommer West RN) Rho(G) this : Not Applicable (08/06/2016 15:40:Clary Mann RN) Hemoglobin: 11.9 L (09/09/2016 12:13:QS system process) Hematocrit: 35.9 L (09/09/2016 12:13:QS system process) MCV: 83 (09/09/2016 12:13:QS system process) RPR/VDRL: Nonreactive (Annotations: Data stored by CPN on behalf of user) (08/06/2016 15:40:Sommer West RN) HIV Exposure Test: Negative (08/06/2016 15:40:Sommer West RN) HIV Results: Negative (08/06/2016 15:40:Sommer West RN) Hepatitis B: Negative (08/06/2016 15:40:Clary Mann RN) Rubella: Immune (08/06/2016 15:40:Clary Mann RN) OB/PREVIOUS HISTORY Previous Procedures: Ultrasound; NST (08/06/2016 15:40:Sommer West RN) Current Procedures: Ultrasound; NST (08/06/2016 15:40:Sommer West RN) History of Previous : No (08/06/2016 15:40:Sommer West RN) History of Gestational Diabetes: No (08/06/2016 15:40:Sommer West RN) History of PIH: Yes (08/06/2016 15:40:Sommer West RN) History of Incompetent Cervix: No (08/06/2016 15:40:Sommer West RN) History of Placenta Previa/Abrup: No (08/06/2016 15:40:Sommer West RN) History of Macrosomia: No (08/06/2016 15:40:Sommer West RN) History of IUGR: No (08/06/2016 15:40:Sommer West RN) History of Hemorrhage: No (08/06/2016 15:40:Sommer West RN) History of Loss/Stillborn: No (08/06/2016 15:40:Sommer West RN) History of : No (08/06/2016 15:40:Sommer West RN) History of D (Rh) Sensitization: No (08/06/2016 15:40:Sommer West RN) History Recurrent Loss/Stillborn: No (08/06/2016 15:40:Sommer West RN) History Depression/PP Depression: No (08/06/2016 15:40:Sommer West RN) History of Uterine Anomaly/SHAWN: No (08/06/2016 15:40:Sommer West RN) History of Infertility: No (08/06/2016 15:40:Sommer West RN) History of ART Treatment: No (08/06/2016 15:40:Somemr West RN) History of SHAWN: No (08/06/2016 15:40:Sommer West RN) Comments Obstetrical History: G1: 2010 baby girl, 39 weeks, 3 hours labor, 5 lb 4 oz, HTN G2: 2013 baby girl, 38.3 weeks, 2 hours labor, 6 lb 10 oz G3: 2014 SAB 8 weeks G4: Current; Breech 08/06; Baseline 24* protein 352 05/27 (08/06/2016 15:40:Clary Mann RN) MEDICAL HISTORY Med Hx Diabetes: No (08/06/2016 15:40:Sommer West RN) Med Hx Hypertension: No (08/06/2016 15:40:Sommer West RN) Med Hx Heart Disease: No (08/06/2016 15:40:Sommer West RN) Med Hx Autoimmune Disorder: No (08/06/2016 15:40:Sommer West RN) Med Hx Kidney Disease/UTI: No (08/06/2016 15:40:Sommer West RN) Med Hx Neurologic/Epilepsy: No (08/06/2016 15:40:Sommer West RN) Med Hx Psychiatric Disorders: No (08/06/2016 15:40:Sommer West RN) Med Hx Hepatitis/Liver Disease: No (08/06/2016 15:40:Sommer West RN) Med Hx Varicosities/Phlebitis: No (08/06/2016 15:40:Sommer West RN) Med Hx Thyroid Dysfunction: No (08/06/2016 15:40:Sommer West RN) Med Hx Trauma/Violence: No (08/06/2016 15:40:Sommer West RN) Med Hx Blood Transfusion: No (08/06/2016 15:40:Sommer West RN) Med Hx Pulmonary (Asthma,TB): No (08/06/2016 15:40:Sommer West RN) Med Hx Breast: No (08/06/2016 15:40:Sommer West RN) Med Hx METAL LOADER Surgery: No (08/06/2016 15:40:Sommer West RN) Med Hx Hospitalization/Surgery: No (08/06/2016 15:40:Sommer West RN) Med Hx Anesthetic Complications: No (08/06/2016 15:40:Sommer West RN) Med Hx Abnormal Pap Smear: No (08/06/2016 15:40:Sommer West RN) Other Medical Diseases: No (08/06/2016 15:40:Sommer West RN) Med Hx Significant Family Hx: No (08/06/2016 15:40:Sommer West RN) INFECTIOUS HISTORY Inf Hx Gonorrhea: No (08/06/2016 15:40:Sommer West RN) Inf Hx Chlamydia: No (08/06/2016 15:40:Sommer West RN) Inf Hx Syphilis: No (08/06/2016 15:40:Sommer West RN) Inf Hx HIV/AIDS: No (08/06/2016 15:40:Sommer West RN) Inf Hx Human Papilloma Virus: No (08/06/2016 15:40:Sommer West RN) Inf Hx Pt/Partner Genital Herpes: No (08/06/2016 15:40:Sommer West RN) Inf Hx Tuberculosis/Exposure: No (08/06/2016 15:40:Sommer West RN) Inf Hx Hepatitis B,C: No (08/06/2016 15:40:Sommer West RN) Inf Hx Rash or Viral Illness: No (08/06/2016 15:40:Sommer West RN) GENETIC HISTORY Gen Hx Age >=35 at LESLIE: No (08/06/2016 15:40:Sommer West RN) Gen Hx Thalassemia: No (08/06/2016 15:40:Sommer West RN) Gen Hx Congenital Heart Defect: No (08/06/2016 15:40:Sommer West RN) Gen Hx Neural Tube Defect: No (08/06/2016 15:40:Sommer West RN) Gen Hx Down's Syndrome: No (08/06/2016 15:40:Sommer West RN) Gen Hx Julius-Sachs: No (08/06/2016 15:40:Sommer West RN) Gen Hx Fabrice: No (08/06/2016 15:40:Sommer West RN) Gen Hx Familial Dysautonomia: No (08/06/2016 15:40:Sommer West RN) Gen Hx Sickle Cell Disease/Trait: No (08/06/2016 15:40:Sommer West RN) Gen Hx Hemophilia/Blood Disorder: No (08/06/2016 15:40:Sommer West RN) Gen Hx Muscular Dystrophy: No (08/06/2016 15:40:Sommer West RN) Gen Hx Cystic Fibrosis: No (08/06/2016 15:40:Sommer West RN) Gen Hx Huntingtons Chorea: No (08/06/2016 15:40:Sommer West RN) Gen Hx Mental Retardation/Autism: No (08/06/2016 15:40:Sommer West RN) Gen Hx Tested for Fragile X: No (08/06/2016 15:40:Sommer West RN) Gen Hx Other Inher/Chromosomal: No (08/06/2016 15:40:Sommer West RN) Gen Hx Maternal Metabolic DO: No (08/06/2016 15:40:Sommer West RN) Gen Hx Pt Father or FOB Defect: No (08/06/2016 15:40:Sommer West RN) Gen Hx Other Genetic History: No (08/06/2016 15:40:Sommer West RN) Gen Hx Drugs/Meds since LMP: No (08/06/2016 15:40:Sommer West RN)
--- NOTE | 2016-09-22 06:15 | L&D Current Admission ---
Current Admit Datetime Report Generated by CPN: 09/22/2016 06:00 ADMISSION INFORMATION Chief Complaint: PIH workup sent from [facility], [facility] ordered (09/09/2016 11:30:Shavonne Hauser RN) Medications During : Rantidine (Zantac) (08/06/2016 15:35:Sommer West RN) Meds During -Oth: PNV; Probiotics (08/06/2016 15:35:Sommer West RN) Method of Arrival: Ambulatory (08/06/2016 15:35:Sommer West RN) Admitted From: Home (08/06/2016 15:35:Sommer West RN) Records Available: Yes (08/06/2016 15:35:Sommer West RN)
--- NOTE | 2016-09-22 06:15 | L&D General Admission ---
General Admit Datetime Report Generated by CPN: 09/22/2016 06:00 INFORMATION Patient Age: 30 (08/06/2016 15:13:QS system process) EDC: 10/15/2016 00:00 (08/06/2016 15:40:Meghan Hawkins RN) : 4 (08/06/2016 15:40:Meghan Hawkins RN) Para: 2 (08/13/2016 21:31:Allyson Saenz RN) Term: 2 (08/06/2016 15:40:Clary Mann RN) : 0 (08/06/2016 15:40:Clary Mann RN) Spontaneous Abortions: 1 (08/06/2016 15:40:Clary Mann RN) Induced Abortions: 0 (08/06/2016 15:40:Clary Mann RN) Livin (08/06/2016 15:40:Meghan Hawkins RN) Cesareans: 0 (08/06/2016 15:40:Clary Mann RN) VBACs: 0 (08/06/2016 15:40:Clary Mann RN) Ectopic: 0 (08/06/2016 15:40:Clary Mann RN) Multiple Births: 0 (08/06/2016 15:40:Clary Mann RN) Baby, Number in Womb: 1 (09/09/2016 13:19:Shavonne Hauser RN) CARE Primary Janitor: [facility] (08/06/2016 15:40:Meghan Hawkins RN) Janitor Other: [facility] (08/06/2016 15:40:Meghan Hawkins RN) Month of 1st Visit: (08/06/2016 15:40:Clary Mann RN) Adequate Care: Yes (08/06/2016 15:40:Meghan Hawkins RN) Prepregnancy Weight (lb): 152 (08/06/2016 15:40:Clary Mann RN) Prepregnancy Weight (kg): 69.1 (08/06/2016 15:40:QS system process) Height (in): 62 (09/09/2016 11:52:QS system process) ALLERGIES Medication Allergy: Yes (08/06/2016 15:40:Meghan Hawkins RN) Medication Allergies: Penicillins/Generalized radha (09/09/2016); amoxicillin/[place]/rash (09/09/2016) (09/09/2016 11:52:QS system process) Latex Allergy: No Latex Allergies (08/06/2016 15:40:Meghan Hawkins RN) Food Allergies: None (08/06/2016 15:40:Allyson Saenz RN) Environmental Allergies: None (08/06/2016 15:40:Allyson Saenz RN) COMMUNICATION Primary Language: Uruguayan (08/06/2016 15:40:Meghan Hawkins RN) Medical Tx Preferred Language: Uruguayan (08/06/2016 15:40:Allyson Saenz RN) Communication Barrier(s): None (08/06/2016 15:40:Allyson aSenz RN) DEMOGRAPHICS Address: [address] [place], [place] [id number] (08/06/2016 15:13:QS system process) Zipcode: [address] (08/06/2016 15:13:QS system process) Home (08/06/2016 15:13:QS system process) SSN: [id number] (08/06/2016 15:13:QS system process) Next of Kin Name: FACUNDO OCASIO (08/06/2016 15:13:QS system process) Next of Kin (08/06/2016 15:13:QS system process) Next of Kin Relationship: SPO (08/06/2016 15:13:QS system process) Date of : 1985 (08/06/2016 15:13:QS system process) Marital Status: (08/06/2016 15:13:QS system process) Sex: Female (08/06/2016 15:13:QS system process) Race: (08/06/2016 15:13:QS system process) Ethnicity: Non- or (08/06/2016 15:13:QS system process) Zoroastrianism: Sikh (08/06/2016 15:13:QS system process) DRUG AND ALCOHOL USE Alcohol: No (08/06/2016 15:40:Meghan Hawkins RN) Cigarettes: Never Smoker. 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: [facility] (08/06/2016 15:40:Meghan Hawkins RN) Feeding Preference: Breast (08/06/2016 15:40:Meghan Hawkins RN) Benefit of Breast Feed Discussed: Yes (08/06/2016 15:40:Meghan Hawkins RN) Circumcision: Yes (08/06/2016 15:40:Meghan Hawkins RN) Classes Attended: No (08/06/2016 15:40:Meghan Hawkins RN) Tubal Ligation: No (08/06/2016 15:40:Meghan Hawkins RN) Tubal Authorization Signed: N/A (08/06/2016 15:40:Meghan Hawkins RN) Consent: N/A (08/06/2016 15:40:Meghan Hawkins RN) Consent Signed: N/A (08/06/2016 15:40:Meghan Hawkins RN) Pain Management Plans: Natural; Medications (08/06/2016 15:40:Meghan Hawkins RN) Plans for Labor and Delivery: None (08/06/2016 15:40:Allyson Saenz RN) Support Person: Facundo Ocasio (08/06/2016 15:40:Meghan Hawkins RN) Cultural/Spritual Practice: No (08/06/2016 15:40:Meghan Hawkins RN) Spir/Cult Dietary Needs: No (08/06/2016 15:40:Meghan Hawkins RN) LIVING SITUATION/DISCHARGE PLAN Living Arrangements: House (08/06/2016 15:40:Meghan Hawkins RN) Adequate Access to:: Electric; Heat; Refrigeration; Plumbing/Running water; Phone; Transportation (08/06/2016 15:40:Meghan Hawkins RN) WIC Program: Yes (08/06/2016 15:40:Meghan Hawkins RN) Discharge Training Coordinator Person: Facundo Ocasio (08/06/2016 15:40:Meghan Hawkins RN) Person to Help after Discharge: Facundo Ocasio (08/06/2016 15:40:Meghan Hawkins RN) Currently Using Commun Resources: Yes (08/06/2016 15:40:Meghan Hawkins RN) Specify Current Resource Used: Medicaid (08/06/2016 15:40:Meghan Hawkins RN) Car Seat for Discharge: Yes (08/06/2016 15:40:Meghan Hawkins RN) Adoption Requested: No (08/06/2016 15:40:Meghan Hawkins RN) Pt Contact w/infant Post : N/A (08/06/2016 15:40:Allyson Saenz RN) LABS Blood Type: O Positive (08/06/2016 15:40:Sommer West RN) Antibody Screen: Negative (08/06/2016 15:40:Sommer West RN) Rho(G) this : Not Applicable (08/06/2016 15:40:Clary Mann RN) Hemoglobin: 11.9 L (09/09/2016 12:13:QS system process) Hematocrit: 35.9 L (09/09/2016 12:13:QS system process) MCV: 83 (09/09/2016 12:13:QS system process) RPR/VDRL: Nonreactive (Annotations: Data stored by CPN on behalf of user) (08/06/2016 15:40:Sommer West RN) HIV Exposure Test: Negative (08/06/2016 15:40:Sommer West RN) HIV Results: Negative (08/06/2016 15:40:Sommer West RN) Hepatitis B: Negative (08/06/2016 15:40:Clary Mann RN) Rubella: Immune (08/06/2016 15:40:Clary Mann RN) OB/PREVIOUS HISTORY Previous Procedures: Ultrasound; NST (08/06/2016 15:40:Sommer West RN) Current Procedures: Ultrasound; NST (08/06/2016 15:40:Sommer West RN) History of Previous : No (08/06/2016 15:40:Sommer West RN) History of Gestational Diabetes: No (08/06/2016 15:40:Sommer West RN) History of PIH: Yes (08/06/2016 15:40:Sommer West RN) History of Incompetent Cervix: No (08/06/2016 15:40:Sommer West RN) History of Placenta Previa/Abrup: No (08/06/2016 15:40:Sommer West RN) History of Macrosomia: No (08/06/2016 15:40:Sommer West RN) History of IUGR: No (08/06/2016 15:40:Sommer West RN) History of Hemorrhage: No (08/06/2016 15:40:Sommer West RN) History of Loss/Stillborn: No (08/06/2016 15:40:Sommer West RN) History of : No (08/06/2016 15:40:Sommer West RN) History of D (Rh) Sensitization: No (08/06/2016 15:40:Sommer West RN) History Recurrent Loss/Stillborn: No (08/06/2016 15:40:Sommer West RN) History Depression/PP Depression: No (08/06/2016 15:40:Sommer West RN) History of Uterine Anomaly/SHAWN: No (08/06/2016 15:40:Sommer West RN) History of Infertility: No (08/06/2016 15:40:Sommer West RN) History of ART Treatment: No (08/06/2016 15:40:Sommer West RN) History of SHAWN: No (08/06/2016 15:40:Sommer West RN) Comments Obstetrical History: G1: 2010 baby girl, 39 weeks, 3 hours labor, 5 lb 4 oz, HTN G2: 2013 baby girl, 38.3 weeks, 2 hours labor, 6 lb 10 oz G3: 2014 SAB 8 weeks G4: Current; Breech 08/06; Baseline 24* protein 352 05/27 (08/06/2016 15:40:Clary Mann RN) MEDICAL HISTORY Med Hx Diabetes: No (08/06/2016 15:40:Sommer West RN) Med Hx Hypertension: No (08/06/2016 15:40:Sommer West RN) Med Hx Heart Disease: No (08/06/2016 15:40:Sommer West RN) Med Hx Autoimmune Disorder: No (08/06/2016 15:40:Sommer West RN) Med Hx Kidney Disease/UTI: No (08/06/2016 15:40:Sommer West RN) Med Hx Neurologic/Epilepsy: No (08/06/2016 15:40:Sommer West RN) Med Hx Psychiatric Disorders: No (08/06/2016 15:40:Sommer West RN) Med Hx Hepatitis/Liver Disease: No (08/06/2016 15:40:Sommer West RN) Med Hx Varicosities/Phlebitis: No (08/06/2016 15:40:Sommer West RN) Med Hx Thyroid Dysfunction: No (08/06/2016 15:40:Sommer West RN) Med Hx Trauma/Violence: No (08/06/2016 15:40:Sommer West RN) Med Hx Blood Transfusion: No (08/06/2016 15:40:Sommer West RN) Med Hx Pulmonary (Asthma,TB): No (08/06/2016 15:40:Sommer West RN) Med Hx Breast: No (08/06/2016 15:40:Sommer West RN) Med Hx SENIOR PROJECT ARCHITECT Surgery: No (08/06/2016 15:40:Sommer West RN) Med Hx Hospitalization/Surgery: No (08/06/2016 15:40:Sommer West RN) Med Hx Anesthetic Complications: No (08/06/2016 15:40:Sommer West RN) Med Hx Abnormal Pap Smear: No (08/06/2016 15:40:Sommer West RN) Other Medical Diseases: No (08/06/2016 15:40:Sommer West RN) Med Hx Significant Family Hx: No (08/06/2016 15:40:Sommer West RN) INFECTIOUS HISTORY Inf Hx Gonorrhea: No (08/06/2016 15:40:Sommer West RN) Inf Hx Chlamydia: No (08/06/2016 15:40:Sommer West RN) Inf Hx Syphilis: No (08/06/2016 15:40:Sommer West RN) Inf Hx HIV/AIDS: No (08/06/2016 15:40:Sommer West RN) Inf Hx Human Papilloma Virus: No (08/06/2016 15:40:Sommer West RN) Inf Hx Pt/Partner Genital Herpes: No (08/06/2016 15:40:Sommer West RN) Inf Hx Tuberculosis/Exposure: No (08/06/2016 15:40:Sommer West RN) Inf Hx Hepatitis B,C: No (08/06/2016 15:40:Sommer West RN) Inf Hx Rash or Viral Illness: No (08/06/2016 15:40:Sommer West RN) GENETIC HISTORY Gen Hx Age >=35 at LESLIE: No (08/06/2016 15:40:Sommer West RN) Gen Hx Thalassemia: No (08/06/2016 15:40:Sommer West RN) Gen Hx Congenital Heart Defect: No (08/06/2016 15:40:Sommer West RN) Gen Hx Neural Tube Defect: No (08/06/2016 15:40:Sommer West RN) Gen Hx Down's Syndrome: No (08/06/2016 15:40:Sommer West RN) Gen Hx Julius-Sachs: No (08/06/2016 15:40:Sommer West RN) Gen Hx Fabrice: No (08/06/2016 15:40:Sommer West RN) Gen Hx Familial Dysautonomia: No (08/06/2016 15:40:Sommer West RN) Gen Hx Sickle Cell Disease/Trait: No (08/06/2016 15:40:Sommer West RN) Gen Hx Hemophilia/Blood Disorder: No (08/06/2016 15:40:Sommer West RN) Gen Hx Muscular Dystrophy: No (08/06/2016 15:40:Sommer West RN) Gen Hx Cystic Fibrosis: No (08/06/2016 15:40:Sommer West RN) Gen Hx Huntingtons Chorea: No (08/06/2016 15:40:Sommer West RN) Gen Hx Mental Retardation/Autism: No (08/06/2016 15:40:Sommer West RN) Gen Hx Tested for Fragile X: No (08/06/2016 15:40:Sommer West RN) Gen Hx Other Inher/Chromosomal: No (08/06/2016 15:40:Sommer West RN) Gen Hx Maternal Metabolic DO: No (08/06/2016 15:40:Sommer West RN) Gen Hx Pt Father or FOB Defect: No (08/06/2016 15:40:Sommer West RN) Gen Hx Other Genetic History: No (08/06/2016 15:40:Sommer West RN) Gen Hx Drugs/Meds since LMP: No (08/06/2016 15:40:Sommer West RN)
== END 2016-09-09 13:35 | disposition home or self-care (01) ==
LOC: LC 11:17
PROVIDERS: ATTEND Specialist
PROC: 4A1HXCZ Monitoring of Products of Conception, Cardiac Rate, External Approach (ICD-10-PCS; principal; 2016-09-09)
DX: Z34.93 Encounter for supervision of normal pregnancy, unspecified, third trimester (principal); Z3A.34 34 weeks gestation of pregnancy
CPT/HCPCS: 36415; 59025; 80053; 80307; 81001; 83615; 84550; 85025

== ENCOUNTER 2016-09-24 07:22 | Inpatient (IN) | payer MEDICAID ==
[2016-09-22 12:37] LABS: ABSOLUTE LYMPHOCYTES (AUTO) 1.5 10^3/uL (0.5-4.7); ABSOLUTE MONOCYTES (AUTO) 0.5 10^3/uL (0.1-1.4); ABSOLUTE NEUT (AUTO) 7.6 10^3/uL (1.7-8.2); APPEARANCE,URINE SLIGHTLY-CLOUDY; BASOPHILS % (AUTO) 0.1 % (0-2); BILIRUBIN,URINE NEGATIVE (NEGATIVE); EOSINOPHILS % (AUTO) 0.1 % (0-6); GLUCOSE, URINE NEGATIVE (NEGATIVE); HEMATOCRIT 36.1 % (36.0-47.0); HEMOGLOBIN 12.3 g/dL (12.0-15.5); HGB HCT DIFFERENCE 0.8; KETONES,URINE NEGATIVE (NEGATIVE); LEUKOCYTE ESTERASE,URINE NEGATIVE (NEGATIVE); LYMPHOCYTES % (AUTO) 15.4 % (13-45); MEAN CORPUSCULAR HEMOGLOBIN 28.3 pg (27.0-33.4); MEAN CORPUSCULAR HGB CONC 34.1 g/dL (32.0-36.0); MEAN CORPUSCULAR VOLUME 83 fl (80-97); MONOCYTES % (AUTO) 4.8 % (3-13); NITRITE,URINE NEGATIVE (NEGATIVE); PROTEIN,URINE NEGATIVE (NEGATIVE); RED BLOOD COUNT 4.35 10^6/uL (3.72-5.28); RED CELL DISTRIBUTION WIDTH 13.5 % (11.5-14.0); SEGMENTED NEUTROPHILS % (AUTO) 79.6 % (42-78); URINE SPECIFIC GRAVITY 1.008; UROBILINOGEN,URINE NEGATIVE mg/dL (<2.0); WHITE BLOOD COUNT 9.6 10^3/uL (4.0-10.5)
[2016-09-22 13:08] LABS: ALANINE AMINOTRANSFERASE 19 U/L (9-52); ALBUMIN 3.8 g/dL (3.5-5.0); ALKALINE PHOSPHATASE 127 U/L (38-126); ANION GAP 11 (5-19); ASPARTATE AMINO TRANSFERASE 18 U/L (14-36); BILIRUBIN,TOTAL 0.3 mg/dL (0.2-1.3); BLOOD UREA NITROGEN 8 mg/dL (7-20); CARBON DIOXIDE 22 mmol/L (22-30); CHLORIDE 105 mmol/L (98-107); GLUCOSE 67 mg/dL (75-110); LDH 302 U/L (313-618); POTASSIUM 4.3 mmol/L (3.6-5.0); SODIUM 137.8 mmol/L (137-145); TOTAL PROTEIN 6.4 g/dL (6.3-8.2); URIC ACID 4.4 mg/dL (2.5-6.2)
[2016-09-22 13:16] LABS: URINE BARBITURATES SCREEN NEGATIVE; URINE METHADONE SCREEN NEGATIVE; URINE PHENCYCLIDINE SCREEN NEGATIVE
[2016-09-24] MEDS ORDERED: CEFAZOLIN 2 GM/D5W RTU 2 GM/50 ML RTUPB IV PRN (07:29)
[2016-09-24] MEDS ORDERED: LACTATED RINGERS 1000 ML IV PRN (07:31)
[2016-09-24] MEDS ORDERED: LIDOCAINE 0.5% INJ-PF (5 MG/ML) 50 ML SDV SUBCUT PRN (07:32)
[2016-09-24] MEDS ORDERED: CEFAZOLIN 2 GM/D5W RTU 2 GM/50 ML RTUPB IV ONE (08:49)
[2016-09-24] MEDS ORDERED: MISOPROSTOL 0.2 MG TABLET ONE (09:28)
[2016-09-24] MEDS ORDERED: EPHEDRINE SULFATE INJ 50 MG/1 ML AMPULE ONE (09:30)
[2016-09-24] MEDS ORDERED: MIDAZOLAM 2 MG/2 ML INJ ONE (09:30)
[2016-09-24] MEDS ORDERED: ACETAMINOPHEN 100 ML IV ONE (09:31)
[2016-09-24] MEDS ORDERED: PROPOFOL INJ 200 MG/20 ML VIAL IV ONE (09:31)
[2016-09-24] MEDS ORDERED: OXYTOCIN/NORMAL SALINE 20 UNIT/1,000 ML RTUINJ ONE ×2 (09:31→11:04)
[2016-09-24] MEDS ORDERED: MEPERIDINE HCL/PF INJ 25 MG/1 ML DISP.SYRIN IV PRN (09:42)
[2016-09-24] MEDS ORDERED: OXYCODONE-ACETAMINOPHEN 5-325 MG TABLET PO PRN ×3 (09:42→11:32)
[2016-09-24] MEDS ORDERED: FENTANYL CITRATE INJ/PF 100 MCG/2 ML AMPUL IV PRN ×3 (09:42)
[2016-09-24] MEDS ORDERED: DIPHENHYDRAMINE HCL 50 MG/ML VIAL IV PRN (09:42)
[2016-09-24] MEDS ORDERED: PROMETHAZINE HCL INJ 25 MG/1 ML VIAL IV PRN ×2 (09:42)
[2016-09-24] MEDS ORDERED: MORPHINE SULFATE 10 MG/ML INJ IV PRN (09:42)
--- NOTE | 2016-09-24 11:17 | OPERATIVE REPORT E ---
Operative Report NAME: MATTIE OCASIO : 1985 AGE: 30Y DATE OF SURGERY: 09/24/2016 ROOM: 215 PREOPERATIVE DIAGNOSES: 1. Intrauterine at 37 weeks with gestational hypertension versus pre-eclampsia and breech presentation. 2. Undesired fertility and desire for bilateral ligation. OPERATION PERFORMED: Primary low transverse section with bilateral tubal ligation via Filshie clips. POSTOPERATIVE DIAGNOSIS: Status post primary low transverse , infant delivered vertex. SURGEON: CHAYA LATHAM M.D. ESTIMATED BLOOD LOSS: 500 mL. SPECIMEN: Placenta was given to patient's family as they requested it. FINDINGS: Luciano male , rather oblique presentation with double nuchal cord, delivered vertex. Tubes and ovaries appeared to be normal. 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 DESCRIPTION OF PROCEDURE: After discussing risks, benefits, and alternatives of the procedure and obtaining informed consent, patient was taken to the operating room where a spinal anesthesia was achieved. She was positioned in the dorsal supine position with a leftward tilt. She was prepped and draped in the usual standard fashion. Pfannenstiel skin incision was made. Abdomen was entered in layers in a standard fashion. Low transverse cervical incision was made. Surgeon's hand was entered into the hysterotomy incision and the 's head delivered vertex. A double nuchal cord was reduced. Shoulders and body delivered easily thereafter. Cord was clamped x2 and cut. was handed to Pediatrics who were present. The placenta was manually extracted. The uterus was exteriorized and cleared of all clots and debris. The hysterotomy incision was closed in a double-layer fashion with 0 Monocryl. Excellent hemostasis was observed. A Filshie clip was placed across the isthmic portion of each Fallopian tube. Uterus, tubes, and ovaries returned to the peritoneal cavity. The cavity was irrigated and hemostasis again assured. The peritoneum was closed with 2-0 Vicryl in a running fashion. The rectus muscles were loosely reapproximated with 2-0 Vicryl. Subfascial spaces were inspected and noted to be hemostatic. Fascia was closed with #1 Vicryl. The subcutaneous tissues were irrigated and closed with 3-0 plain gut. The skin was closed in a subcuticular fashion with 3-0 Monocryl. Steri-Strips were applied and an OpSite dressing. Patient was given Cytotec 1000 mcg per rectum due to history of hemorrhage due to apnea in the past. She was taken to recovery in stable condition. All sponge, needle, lap, and instrument counts were correct x2. DICTATING PHYSICIAN: CHAYA LATHAM M.D. [id number] PHY#: [id number] ID: [id number] JOB#: [id number] ACCT: [id number] cc:CHAYA LATHAM M.D. >
[2016-09-24] MEDS ORDERED: OXYTOCIN/NORMAL SALINE 20 UNIT/1,000 ML RTUINJ INJ PRN (11:32)
[2016-09-24] MEDS ORDERED: DIPH/PERTUSS(ACELL)/TETANUS VAC/PF 0.5 ML SYR (>=10YO) IM PRN (11:32)
[2016-09-24] MEDS ORDERED: MEASLES,MUMPS&RUBELLA VACC/PF 0.5 ML VIAL SUBCUT PRN (11:32)
[2016-09-24] MEDS ORDERED: PROMETHAZINE HCL INJ 25 MG/1 ML VIAL IM PRN (11:32)
[2016-09-24] MEDS ORDERED: SIMETHICONE 80 MG TAB.CHEW PO PRN (11:32)
[2016-09-24] MEDS ORDERED: ACETAMINOPHEN 325 MG TABLET PO PRN (11:32)
[2016-09-24] MEDS ORDERED: HYDROMORPHONE HCL INJ/PF 2 MG/ML AMPULE ONE (11:55)
--- NOTE | 2016-09-24 12:00 | L&D Flow Sheet ---
LD Flowsheet Datetime Report Generated by CPN: 09/24/2016 12:00 Datetime: 09/24/2016 11:56 NBP Sys/[place]/Mean (mmHg): 124 (QS system process) : 62 (QS system process) : 87 (QS system process) Pulse: 88 (QS system process) Datetime: 09/24/2016 11:55 Pulse: 90 (QS system process) SpO2 (%): 99 (QS system process) Datetime: 09/24/2016 11:51 NBP Sys/[place]/Mean (mmHg): 123 (QS system process) : 58 (QS system process) : 84 (QS system process) Pulse: 81 (QS system process) Datetime: 09/24/2016 11:50 Pulse: 82 (QS system process) SpO2 (%): 100 (QS system process) Datetime: 09/24/2016 11:46 NBP Sys/[place]/Mean (mmHg): 124 (QS system process) : 58 (QS system process) : 84 (QS system process) Pulse: 81 (QS system process) Datetime: 09/24/2016 11:45 Pulse: 84 (QS system process) SpO2 (%): 100 (QS system process) Datetime: 09/24/2016 11:41 Stage of : Recovery (Sonali Vincent RN) NBP Sys/[place]/Mean (mmHg): 120 (QS system process) : 58 (QS system process) : 84 (QS system process) Pulse: 84 (QS system process) Respirations: 18 (Sonali Vincent RN) Temperature (F): 98.3 (Sonali Vincent RN) Temperature (C): 36.8 (QS system process) Temperature Route: Oral (Sonali Vincent RN) Pain Scale: 2 (Sonali Vincent RN) Pain Presence: Constant (Sonali Vincent RN) Pain Type: Cramping (Sonali Vincent RN) Pain Location: Abdomen; Back (Sonali Vincent RN) Pain Relief Measures: Comfort Measures (Sonali Renetta Roulund, RN) Datetime: 09/24/2016 11:40 Pulse: 82 (QS system process) SpO2 (%): 100 (QS system process) Datetime: 09/24/2016 11:36 NBP Sys/[place]/Mean (mmHg): 125 (QS system process) : 63 (QS system process) : 89 (QS system process) Pulse: 98 (QS system process) Datetime: 09/24/2016 11:35 Pulse: 89 (QS system process) SpO2 (%): 100 (QS system process) Datetime: 09/24/2016 11:31 NBP Sys/[place]/Mean (mmHg): 121 (QS system process) : 55 (QS system process) : 82 (QS system process) Pulse: 79 (QS system process) Datetime: 09/24/2016 11:30 Pulse: 81 (QS system process) SpO2 (%): 100 (QS system process) Datetime: 09/24/2016 11:26 Stage of : Recovery (Sonali Renetta Vincent, RN) NBP Sys/[place]/Mean (mmHg): 124 (QS system process) : 58 (QS system process) : 84 (QS system process) Pulse: 85 (QS system process) Respirations: 16 (Sonali Vincent RN) Pain Scale: 2 (Sonali Vincent RN) Pain Presence: Constant (Sonali Vincent RN) Pain Type: Cramping (Sonali Vincent RN) Pain Location: Abdomen; Back (Sonali Vincent RN) Pain Relief Measures: Comfort Measures (Sonali Vincent RN) Datetime: 09/24/2016 11:25 Pulse: 80 (QS system process) SpO2 (%): 100 (QS system process) Datetime: 09/24/2016 11:21 NBP Sys/[place]/Mean (mmHg): 126 (QS system process) : 60 (QS system process) : 86 (QS system process) Pulse: 90 (QS system process) Datetime: 09/24/2016 11:20 Pulse: 93 (QS system process) SpO2 (%): 100 (QS system process) Datetime: 09/24/2016 11:16 NBP Sys/[place]/Mean (mmHg): 119 (QS system process) : 59 (QS system process) : 83 (QS system process) Pulse: 89 (QS system process) Datetime: 09/24/2016 11:15 Pulse: 87 (QS system process) SpO2 (%): 100 (QS system process) Datetime: 09/24/2016 11:11 Stage of : Recovery (Sonali Vincent RN) NBP Sys/[place]/Mean (mmHg): 125 (QS system process) : 68 (QS system process) : 90 (QS system process) Pulse: 88 (QS system process) Respirations: 16 (Sonali Vincent RN) Pain Scale: 1 (Sonali Vincent RN) Pain Presence: Constant (Sonali Vincent RN) Pain Type: Cramping (Sonali Vincent RN) Pain Location: Back (Sonali Vincent RN) Pain Relief Measures: Comfort Measures (Sonali Vincent RN) Datetime: 09/24/2016 11:10 Pulse: 91 (QS system process) SpO2 (%): 100 (QS system process) Datetime: 09/24/2016 11:06 NBP Sys/[place]/Mean (mmHg): 130 (QS system process) : 72 (QS system process) : 96 (QS system process) Pulse: 80 (QS system process) Datetime: 09/24/2016 11:05 Pulse: 80 (QS system process) SpO2 (%): 100 (QS system process) Datetime: 09/24/2016 11:01 NBP Sys/[place]/Mean (mmHg): 129 (QS system process) : 72 (QS system process) : 90 (QS system process) Pulse: 92 (QS system process) Datetime: 09/24/2016 11:00 Pulse: 81 (QS system process) SpO2 (%): 100 (QS system process) Datetime: 09/24/2016 10:56 Stage of : Recovery (Sonali Vincent RN) NBP Sys/[place]/Mean (mmHg): 132 (QS system process) : 71 (QS system process) : 95 (QS system process) Pulse: 88 (QS system process) Respirations: 16 (Sonali Vincent RN) Pain Scale: 1 (Sonali Vincent RN) Pain Presence: Constant (Sonali Vincent RN) Pain Type: Cramping (Sonali Vincent RN) Pain Location: Back (Sonali Vincent RN) Pain Relief Measures: Comfort Measures (Sonali Vincent RN) Datetime: 09/24/2016 10:55 Pulse: 84 (QS system process) SpO2 (%): 100 (QS system process) Datetime: 09/24/2016 10:51 NBP Sys/[place]/Mean (mmHg): 131 (QS system process) : 62 (QS system process) : 89 (QS system process) Pulse: 78 (QS system process) Datetime: 09/24/2016 10:50 Pulse: 78 (QS system process) SpO2 (%): 100 (QS system process) Datetime: 09/24/2016 10:46 NBP Sys/[place]/Mean (mmHg): 129 (QS system process) : 58 (QS system process) : 83 (QS system process) Pulse: 84 (QS system process) Datetime: 09/24/2016 10:45 Pulse: 86 (QS system process) SpO2 (%): 100 (QS system process) Datetime: 09/24/2016 10:41 Stage of : Recovery (Sonali Vincent RN) NBP Sys/[place]/Mean (mmHg): 129 (QS system process) : 75 (QS system process) : 96 (QS system process) Pulse: 85 (QS system process) Respirations: 16 (Sonali Vincent RN) Temperature (F): 98.2 (Sonali Vincent RN) Temperature (C): 36.8 (QS system process) Temperature Route: Oral (Sonali Vincent RN) Pain Scale: 1 (Sonali Vincent RN) Pain Presence: Constant (Sonali Vincent RN) Pain Type: Cramping (Sonali Vincent RN) Pain Location: Back (Sonali Vincent RN) Pain Goal: 1 (Sonali Vincent RN) Pain Relief Measures: Comfort Measures (Sonali Vincent RN) Datetime: 09/24/2016 10:40 Pulse: 83 (QS system process) SpO2 (%): 100 (QS system process) Datetime: 09/24/2016 10:39 Stage of : Recovery (Sonali Vincent RN)
[2016-09-24] MEDS ORDERED: ONDANSETRON HCL INJ/PF 4 MG/2 ML SDV ONE (12:41)
[2016-09-24] MEDS: HYDROMORPHONE HCL INJ/PF 2 MG/ML AMPULE IV PRN ×2 (14:00→18:53)
[2016-09-24] MEDS: IBUPROFEN 800 MG TABLET PO SCH (17:38)
[2016-09-24] MEDS: DOCUSATE SODIUM 100 MG CAPSULE PO SCH (17:38)
--- NOTE | 2016-09-24 19:01 | L&D Flow Sheet ---
LD Flowsheet Datetime Report Generated by CPN: 09/24/2016 19:00 Datetime: 09/24/2016 12:36 Stage of : Recovery (Sonali Vincent RN) NBP Sys/[place]/Mean (mmHg): 133 (QS system process) : 72 (QS system process) : 96 (QS system process) Pulse: 90 (QS system process) Respirations: 18 (Sonali Vincent RN) Temperature (F): 98.1 (Sonali Vincent RN) Temperature (C): 36.7 (QS system process) Temperature Route: Axillary (Sonali Vincent RN) Pain Scale: 2 (Sonali Vincent RN) Pain Presence: Constant (Sonali Vincent RN) Pain Type: Cramping (Sonali Vincent RN) Pain Location: Abdomen (Sonali Vincent RN) Pain Goal: 3 (Sonali Vincent RN) Pain Relief Measures: Comfort Measures (Sonali Renetta Roulund, RN) Datetime: 09/24/2016 12:31 NBP Sys/[place]/Mean (mmHg): 125 (QS system process) : 58 (QS system process) : 84 (QS system process) Pulse: 85 (QS system process) Datetime: 09/24/2016 12:30 Pulse: 88 (QS system process) SpO2 (%): 98 (QS system process) Datetime: 09/24/2016 12:26 Stage of : Recovery (Sonali Vincent, BAR) NBP Sys/[place]/Mean (mmHg): 136 (QS system process) : 65 (QS system process) : 94 (QS system process) Pulse: 90 (QS system process) Respirations: 18 (Sonali Vincent RN) Pain Scale: 2 (Sonali Vincent RN) Pain Presence: Constant (Sonali Vincent RN) Pain Type: Cramping (Sonali Vincent RN) Pain Location: Abdomen (Sonali Vincent RN) Pain Relief Measures: Comfort Measures (Sonali Vincent RN) Datetime: 09/24/2016 12:25 Pulse: 91 (QS system process) SpO2 (%): 99 (QS system process) Datetime: 09/24/2016 12:21 NBP Sys/[place]/Mean (mmHg): 134 (QS system process) : 61 (QS system process) : 88 (QS system process) Pulse: 92 (QS system process) Datetime: 09/24/2016 12:20 Pulse: 92 (QS system process) SpO2 (%): 99 (QS system process) Datetime: 09/24/2016 12:16 NBP Sys/[place]/Mean (mmHg): 131 (QS system process) : 66 (QS system process) : 90 (QS system process) Pulse: 87 (QS system process) Datetime: 09/24/2016 12:15 Pulse: 87 (QS system process) SpO2 (%): 98 (QS system process) Datetime: 09/24/2016 12:11 Stage of : Recovery (Sonali Vincent RN) NBP Sys/[place]/Mean (mmHg): 137 (QS system process) : 70 (QS system process) : 96 (QS system process) Pulse: 92 (QS system process) Respirations: 18 (Sonali Vincent RN) Pain Scale: 2 (Sonali Vincent RN) Pain Presence: Constant (Sonali Vincent RN) Pain Type: Cramping (Sonali Vincent RN) Pain Location: Abdomen (Sonali Vnicent RN) Pain Relief Measures: Comfort Measures (Sonali Vincent RN) Datetime: 09/24/2016 12:10 Pulse: 88 (QS system process) SpO2 (%): 98 (QS system process) Datetime: 09/24/2016 12:06 NBP Sys/[place]/Mean (mmHg): 140 (QS system process) : 70 (QS system process) : 98 (QS system process) Pulse: 88 (QS system process) Datetime: 09/24/2016 12:05 Pulse: 100 (QS system process) SpO2 (%): 100 (QS system process) Datetime: 09/24/2016 12:01 Stage of : Recovery (Sonali Vincent RN) NBP Sys/[place]/Mean (mmHg): 133 (QS system process) : 68 (QS system process) : 94 (QS system process) Pulse: 88 (QS system process) Respirations: 18 (Sonali Vincent RN) Pain Scale: 3 (Sonali Vincent RN) Pain Presence: Constant (Sonali Vincent RN) Pain Type: Cramping (Sonali Vincent RN) Pain Location: Abdomen; Back (Sonali Vincent RN) Pain Relief Measures: Pain Medication Given; Comfort Measures (Sonali Vincent RN) Datetime: 09/24/2016 12:00 Pulse: 86 (QS system process) SpO2 (%): 100 (QS system process) Datetime: 09/24/2016 11:56 Stage of : Recovery (Sonali Vincent RN) NBP Sys/[place]/Mean (mmHg): 124 (QS system process) : 62 (QS system process) : 87 (QS system process) Pulse: 88 (QS system process) Respirations: 18 (Sonali Vincent RN) Pain Scale: 3 (Sonali Vincent RN) Pain Presence: Constant (Sonali Vincent RN) Pain Type: Cramping (Sonali Vincent RN) Pain Location: Abdomen; Back (Sonali Vincent RN) Pain Relief Measures: Comfort Measures (Sonali Renetta Roulund, RN) Datetime: 09/24/2016 11:55 Pulse: 90 (QS system process) SpO2 (%): 99 (QS system process) Datetime: 09/24/2016 11:51 NBP Sys/[place]/Mean (mmHg): 123 (QS system process) : 58 (QS system process) : 84 (QS system process) Pulse: 81 (QS system process) Datetime: 09/24/2016 11:50 Pulse: 82 (QS system process) SpO2 (%): 100 (QS system process) Datetime: 09/24/2016 11:46 NBP Sys/[place]/Mean (mmHg): 124 (QS system process) : 58 (QS system process) : 84 (QS system process) Pulse: 81 (QS system process) Datetime: 09/24/2016 11:45 Pulse: 84 (QS system process) SpO2 (%): 100 (QS system process) Datetime: 09/24/2016 11:41 Stage of : Recovery (Sonali Renetta Roulund, RN) NBP Sys/[place]/Mean (mmHg): 120 (QS system process) : 58 (QS system process) : 84 (QS system process) Pulse: 84 (QS system process) Respirations: 18 (Sonali Vincent RN) Temperature (F): 98.3 (Sonali Vincent RN) Temperature (C): 36.8 (QS system process) Temperature Route: Oral (Sonali Vincent RN) Pain Scale: 2 (Sonali Vincent RN) Pain Presence: Constant (Sonali Vincent RN) Pain Type: Cramping (Sonali Vincent RN) Pain Location: Abdomen; Back (Sonali Vincent RN) Pain Relief Measures: Comfort Measures (Sonali Vincent RN) Datetime: 09/24/2016 11:40 Pulse: 82 (QS system process) SpO2 (%): 100 (QS system process) Datetime: 09/24/2016 11:36 NBP Sys/[place]/Mean (mmHg): 125 (QS system process) : 63 (QS system process) : 89 (QS system process) Pulse: 98 (QS system process) Datetime: 09/24/2016 11:35 Pulse: 89 (QS system process) SpO2 (%): 100 (QS system process) Datetime: 09/24/2016 11:31 NBP Sys/[place]/Mean (mmHg): 121 (QS system process) : 55 (QS system process) : 82 (QS system process) Pulse: 79 (QS system process) Datetime: 09/24/2016 11:30 Pulse: 81 (QS system process) SpO2 (%): 100 (QS system process) Datetime: 09/24/2016 11:26 Stage of : Recovery (Sonali Vincent RN) NBP Sys/[place]/Mean (mmHg): 124 (QS system process) : 58 (QS system process) : 84 (QS system process) Pulse: 85 (QS system process) Respirations: 16 (Sonali Vincent RN) Pain Scale: 2 (Sonali Vincent RN) Pain Presence: Constant (Sonali Vincent RN) Pain Type: Cramping (Sonali Vincent RN) Pain Location: Abdomen; Back (Sonali Vincent RN) Pain Relief Measures: Comfort Measures (Sonali Vincent RN) Datetime: 09/24/2016 11:25 Pulse: 80 (QS system process) SpO2 (%): 100 (QS system process) Datetime: 09/24/2016 11:21 NBP Sys/[place]/Mean (mmHg): 126 (QS system process) : 60 (QS system process) : 86 (QS system process) Pulse: 90 (QS system process) Datetime: 09/24/2016 11:20 Pulse: 93 (QS system process) SpO2 (%): 100 (QS system process) Datetime: 09/24/2016 11:16 NBP Sys/[place]/Mean (mmHg): 119 (QS system process) : 59 (QS system process) : 83 (QS system process) Pulse: 89 (QS system process) Datetime: 09/24/2016 11:15 Pulse: 87 (QS system process) SpO2 (%): 100 (QS system process) Datetime: 09/24/2016 11:11 Stage of : Recovery (Sonali Vincent RN) NBP Sys/[place]/Mean (mmHg): 125 (QS system process) : 68 (QS system process) : 90 (QS system process) Pulse: 88 (QS system process) Respirations: 16 (Sonali Vincent RN) Pain Scale: 1 (Sonali Vincent RN) Pain Presence: Constant (Sonali Vincent RN) Pain Type: Cramping (Sonali Vincent RN) Pain Location: Back (Sonali Vincent RN) Pain Relief Measures: Comfort Measures (Sonali Vincent RN) Datetime: 09/24/2016 11:10 Pulse: 91 (QS system process) SpO2 (%): 100 (QS system process) Datetime: 09/24/2016 11:06 NBP Sys/[place]/Mean (mmHg): 130 (QS system process) : 72 (QS system process) : 96 (QS system process) Pulse: 80 (QS system process) Datetime: 09/24/2016 11:05 Pulse: 80 (QS system process) SpO2 (%): 100 (QS system process) Datetime: 09/24/2016 11:01 NBP Sys/[place]/Mean (mmHg): 129 (QS system process) : 72 (QS system process) : 90 (QS system process) Pulse: 92 (QS system process) Datetime: 09/24/2016 11:00 Pulse: 81 (QS system process) SpO2 (%): 100 (QS system process) Datetime: 09/24/2016 10:56 Stage of : Recovery (Sonali Vincent RN) NBP Sys/[place]/Mean (mmHg): 132 (QS system process) : 71 (QS system process) : 95 (QS system process) Pulse: 88 (QS system process) Respirations: 16 (Sonali Vincent RN) Pain Scale: 1 (Sonali Vincent RN) Pain Presence: Constant (Sonali Vincent RN) Pain Type: Cramping (Sonali Vincent RN) Pain Location: Back (Sonali Vincent RN) Pain Relief Measures: Comfort Measures (Sonali Vincent RN) Datetime: 09/24/2016 10:55 Pulse: 84 (QS system process) SpO2 (%): 100 (QS system process) Datetime: 09/24/2016 10:51 NBP Sys/[place]/Mean (mmHg): 131 (QS system process) : 62 (QS system process) : 89 (QS system process) Pulse: 78 (QS system process) Datetime: 09/24/2016 10:50 Pulse: 78 (QS system process) SpO2 (%): 100 (QS system process) Datetime: 09/24/2016 10:46 NBP Sys/[place]/Mean (mmHg): 129 (QS system process) : 58 (QS system process) : 83 (QS system process) Pulse: 84 (QS system process) Datetime: 09/24/2016 10:45 Pulse: 86 (QS system process) SpO2 (%): 100 (QS system process) Datetime: 09/24/2016 10:41 Stage of : Recovery (Sonali Vincent RN) NBP Sys/[place]/Mean (mmHg): 129 (QS system process) : 75 (QS system process) : 96 (QS system process) Pulse: 85 (QS system process) Respirations: 16 (Sonali Vincent RN) Temperature (F): 98.2 (Sonali Vincent RN) Temperature (C): 36.8 (QS system process) Temperature Route: Oral (Sonali Vincent RN) Pain Scale: 1 (Sonali Vincent RN) Pain Presence: Constant (Sonali Vincent RN) Pain Type: Cramping (Sonali Vincent RN) Pain Location: Back (Sonali Vincent RN) Pain Goal: 1 (Sonali Vincent RN) Pain Relief Measures: Comfort Measures (Sonali Vincent RN) Datetime: 09/24/2016 10:40 Pulse: 83 (QS system process) SpO2 (%): 100 (QS system process) Datetime: 09/24/2016 10:39 Stage of : Recovery (Sonali Vincent RN)
[2016-09-24] MEDS: OXYCODONE-ACETAMINOPHEN 5-325 MG TABLET PO PRN (22:49)
[2016-09-25] MEDS: IBUPROFEN 800 MG TABLET PO SCH ×5 (00:51→23:05)
--- NOTE | 2016-09-25 06:00 | L&D General Admission ---
General Admit Datetime Report Generated by CPN: 09/25/2016 06:00 INFORMATION Patient Age: 30 (08/06/2016 15:13:QS system process) EDC: 10/15/2016 00:00 (08/06/2016 15:40:Meghan Hawkins RN) : 4 (08/06/2016 15:40:Meghan Hawkins RN) Para: 2 (08/13/2016 21:31:Allyson Saenz RN) Term: 2 (08/06/2016 15:40:Clary Mann RN) : 0 (08/06/2016 15:40:Clary Mann RN) Spontaneous Abortions: 1 (08/06/2016 15:40:Clary Mann RN) Induced Abortions: 0 (08/06/2016 15:40:Clary Mann RN) Livin (08/06/2016 15:40:Meghan Hawkins RN) Cesareans: 0 (08/06/2016 15:40:Clary Mann RN) VBACs: 0 (08/06/2016 15:40:Clary Mann RN) Ectopic: 0 (08/06/2016 15:40:Clary Mann RN) Multiple Births: 0 (08/06/2016 15:40:Clary Mann RN) Baby, Number in Womb: 1 (09/09/2016 13:19:Shavonne Hauser RN) CARE Primary Warehouse Distribution Associate: [facility] (08/06/2016 15:40:Meghan Hawkins RN) Warehouse Distribution Associate Other: [facility] (08/06/2016 15:40:Meghan Hawkins RN) Month of 1st Visit: (08/06/2016 15:40:Clary Mann RN) Adequate Care: Yes (08/06/2016 15:40:Meghan Hawkins RN) Prepregnancy Weight (lb): 152 (08/06/2016 15:40:Clary Mann RN) Prepregnancy Weight (kg): 69.1 (08/06/2016 15:40:QS system process) Height (in): 62 (09/24/2016 08:45:QS system process) ALLERGIES Medication Allergy: Yes (08/06/2016 15:40:Meghan Hawkins RN) Medication Allergies: Penicillins/Generalized radha (09/09/2016); amoxicillin/FL/rash (09/09/2016) (09/09/2016 11:52:QS system process) Latex Allergy: No Latex Allergies (08/06/2016 15:40:Meghan Hawkins RN) Food Allergies: None (08/06/2016 15:40:Allyson Saenz RN) Environmental Allergies: None (08/06/2016 15:40:Allyson Saenz RN) COMMUNICATION Primary Language: Kosovan (08/06/2016 15:40:Meghan Hawkins RN) Medical Tx Preferred Language: Kosovan (08/06/2016 15:40:Allyson Saenz RN) Communication Barrier(s): None (08/06/2016 15:40:Allyson Saenz RN) DEMOGRAPHICS Address: [address] [place], [place] [id number] (09/24/2016 07:23:QS system process) Zipcode: [address] (09/24/2016 07:23:QS system process) Home (08/06/2016 15:13:QS system process) SSN: [id number] (08/06/2016 15:13:QS system process) Next of Kin Name: FACUNDO OCASIO (08/06/2016 15:13:QS system process) Next of Kin (08/06/2016 15:13:QS system process) Next of Kin Relationship: SPO (08/06/2016 15:13:QS system process) Date of : 1985 (08/06/2016 15:13:QS system process) Marital Status: (08/06/2016 15:13:QS system process) Sex: Female (08/06/2016 15:13:QS system process) Race: (08/06/2016 15:13:QS system process) Ethnicity: Non- or (08/06/2016 15:13:QS system process) Methodist: Jehov[employer] Witness (08/06/2016 15:13:QS system process) DRUG AND ALCOHOL USE Alcohol: No (08/06/2016 15:40:Meghan Hawkins RN) Cigarettes: Never Smoker. [id number] (08/06/2016 15:40:Meghan Hawkins RN) Marijuana: No (08/06/2016 15:40:Meghan Hawkins RN) Cocaine: No (08/06/2016 15:40:Meghan Hawkins RN) Other Illicit Drugs: No (08/06/2016 15:40:Meghan Hawkins RN) VACCINE HISTORY Influenza Vaccine: No (08/06/2016 15:40:Sommer West RN) Telegraph Messenger: [facility] (08/06/2016 15:40:Meghan Hawkins RN) Feeding Preference: Breast (08/06/2016 15:40:Meghan Hawkins RN) Benefit of Breast Feed Discussed: Yes (08/06/2016 15:40:Meghan Hawkins RN) Circumcision: Yes (08/06/2016 15:40:Meghan Hawkins RN) Classes Attended: No (08/06/2016 15:40:Meghan Hawkins RN) Tubal Ligation: No (08/06/2016 15:40:Meghan Hawkins RN) Tubal Authorization Signed: N/A (08/06/2016 15:40:Meghan Hawkins RN) Consent: N/A (08/06/2016 15:40:Meghan Hawkins RN) Consent Signed: N/A (08/06/2016 15:40:Meghan Hawkins RN) Pain Management Plans: Natural; Medications (08/06/2016 15:40:Meghan Hawkins RN) Plans for Labor and Delivery: None (08/06/2016 15:40:Allyson Saenz RN) Support Person: Facundo Ocasio (08/06/2016 15:40:Meghan Hawkins RN) Cultural/Spritual Practice: No (08/06/2016 15:40:Meghan Hawkins RN) Spir/Cult Dietary Needs: No (08/06/2016 15:40:Meghan Hawkins RN) LIVING SITUATION/DISCHARGE PLAN Living Arrangements: House (08/06/2016 15:40:Meghan Hawkins RN) Adequate Access to:: Electric; Heat; Refrigeration; Plumbing/Running water; Phone; Transportation (08/06/2016 15:40:Meghan Hawkins RN) WIC Program: Yes (08/06/2016 15:40:Meghan Hawkins RN) Discharge Hand Scudder Person: Facundo Ocasio (08/06/2016 15:40:Meghan Hawkins RN) Person to Help after Discharge: Facundo Ocasio (08/06/2016 15:40:Meghan Hawkins RN) Currently Using Commun Resources: Yes (08/06/2016 15:40:Meghan Hawkins RN) Specify Current Resource Used: Medicaid (08/06/2016 15:40:Meghan Hawkins RN) Car Seat for Discharge: Yes (08/06/2016 15:40:Meghan Hawkins RN) Adoption Requested: No (08/06/2016 15:40:Meghan Hawkins RN) Pt Contact w/ Post : N/A (08/06/2016 15:40:Allyson Saenz RN) LABS Blood Type: O Positive (08/06/2016 15:40:Sommer West RN) Antibody Screen: Negative (08/06/2016 15:40:Sommer West RN) Rho(G) this : Not Applicable (08/06/2016 15:40:Clary Mann RN) Hemoglobin: 12.3 (09/22/2016 11:54:QS system process) Hematocrit: 36.1 (09/22/2016 11:54:QS system process) MCV: 83 (09/22/2016 11:54:QS system process) RPR/VDRL: Nonreactive (Annotations: Data stored by CPN on behalf of user) (08/06/2016 15:40:Sommer West RN) HIV Exposure Test: Negative (08/06/2016 15:40:Sommer West RN) HIV Results: Negative (08/06/2016 15:40:Sommer West RN) Hepatitis B: Negative (08/06/2016 15:40:Clary Mann RN) Rubella: Immune (08/06/2016 15:40:Clary Mann RN) OB/PREVIOUS HISTORY Previous Procedures: Ultrasound; NST (08/06/2016 15:40:Sommer West RN) Current Procedures: Ultrasound; NST (08/06/2016 15:40:Sommer West RN) History of Previous : No (08/06/2016 15:40:Sommer West RN) History of Gestational Diabetes: No (08/06/2016 15:40:Sommer West RN) History of PIH: Yes (08/06/2016 15:40:Sommer West RN) History of Incompetent Cervix: No (08/06/2016 15:40:Sommer West RN) History of Placenta Previa/Abrup: No (08/06/2016 15:40:Sommer West RN) History of Macrosomia: No (08/06/2016 15:40:Sommer West RN) History of IUGR: No (08/06/2016 15:40:Sommer West RN) History of Hemorrhage: No (08/06/2016 15:40:Sommer West RN) History of Loss/Stillborn: No (08/06/2016 15:40:Sommer West RN) History of : No (08/06/2016 15:40:Sommer West RN) History of D (Rh) Sensitization: No (08/06/2016 15:40:Sommer West RN) History Recurrent Loss/Stillborn: No (08/06/2016 15:40:Sommer West RN) History Depression/PP Depression: No (08/06/2016 15:40:Sommer West RN) History of Uterine Anomaly/SHAWN: No (08/06/2016 15:40:Sommer West RN) History of Infertility: No (08/06/2016 15:40:Sommer West RN) History of ART Treatment: No (08/06/2016 15:40:Sommer West RN) History of SHAWN: No (08/06/2016 15:40:Sommer West RN) Comments Obstetrical History: G1: 2010 baby girl, 39 weeks, 3 hours labor, 5 lb 4 oz, HTN G2: 2013 baby girl, 38.3 weeks, 2 hours labor, 6 lb 10 oz G3: 2014 SAB 8 weeks G4: Current; Breech 08/06; Baseline 24* protein 352 05/27 (08/06/2016 15:40:Clary Mann RN) MEDICAL HISTORY Med Hx Diabetes: No (08/06/2016 15:40:Sommer West RN) Med Hx Hypertension: No (08/06/2016 15:40:Sommer West RN) Med Hx Heart Disease: No (08/06/2016 15:40:Sommer West RN) Med Hx Autoimmune Disorder: No (08/06/2016 15:40:Sommer West RN) Med Hx Kidney Disease/UTI: No (08/06/2016 15:40:Sommer West RN) Med Hx Neurologic/Epilepsy: No (08/06/2016 15:40:Sommer West RN) Med Hx Psychiatric Disorders: No (08/06/2016 15:40:Sommer West RN) Med Hx Hepatitis/Liver Disease: No (08/06/2016 15:40:Sommer West RN) Med Hx Varicosities/Phlebitis: No (08/06/2016 15:40:Sommer West RN) Med Hx Thyroid Dysfunction: No (08/06/2016 15:40:Sommer West RN) Med Hx Trauma/Violence: No (08/06/2016 15:40:Sommer West RN) Med Hx Blood Transfusion: No (08/06/2016 15:40:Sommer West RN) Med Hx Pulmonary (Asthma,TB): No (08/06/2016 15:40:Sommer West RN) Med Hx Breast: No (08/06/2016 15:40:Sommer West RN) Med Hx HOSIERY BAGGER Surgery: No (08/06/2016 15:40:Sommer West RN) Med Hx Hospitalization/Surgery: No (08/06/2016 15:40:Sommer West RN) Med Hx Anesthetic Complications: No (08/06/2016 15:40:Sommer West RN) Med Hx Abnormal Pap Smear: No (08/06/2016 15:40:Sommer West RN) Other Medical Diseases: No (08/06/2016 15:40:Sommer West RN) Med Hx Significant Family Hx: No (08/06/2016 15:40:Sommer West RN) INFECTIOUS HISTORY Inf Hx Gonorrhea: No (08/06/2016 15:40:Sommer West RN) Inf Hx Chlamydia: No (08/06/2016 15:40:Sommer West RN) Inf Hx Syphilis: No (08/06/2016 15:40:Sommer West RN) Inf Hx HIV/AIDS: No (08/06/2016 15:40:Sommer West RN) Inf Hx Human Papilloma Virus: No (08/06/2016 15:40:Sommer West RN) Inf Hx Pt/Partner Genital Herpes: No (08/06/2016 15:40:Sommer West RN) Inf Hx Tuberculosis/Exposure: No (08/06/2016 15:40:Sommer West RN) Inf Hx Hepatitis B,C: No (08/06/2016 15:40:Sommer West RN) Inf Hx Rash or Viral Illness: No (08/06/2016 15:40:Sommer West RN) GENETIC HISTORY Gen Hx Age >=35 at LESLIE: No (08/06/2016 15:40:Sommer West RN) Gen Hx Thalassemia: No (08/06/2016 15:40:Sommer West RN) Gen Hx Congenital Heart Defect: No (08/06/2016 15:40:Sommer West RN) Gen Hx Neural Tube Defect: No (08/06/2016 15:40:Sommer West RN) Gen Hx Down's Syndrome: No (08/06/2016 15:40:Sommer West RN) Gen Hx Julius-Sachs: No (08/06/2016 15:40:Sommer West RN) Gen Hx Fabrice: No (08/06/2016 15:40:Sommer West RN) Gen Hx Familial Dysautonomia: No (08/06/2016 15:40:Sommer West RN) Gen Hx Sickle Cell Disease/Trait: No (08/06/2016 15:40:Sommer West RN) Gen Hx Hemophilia/Blood Disorder: No (08/06/2016 15:40:Sommer West RN) Gen Hx Muscular Dystrophy: No (08/06/2016 15:40:Sommer West RN) Gen Hx Cystic Fibrosis: No (08/06/2016 15:40:Sommer West RN) Gen Hx Huntingtons Chorea: No (08/06/2016 15:40:Sommer West RN) Gen Hx Mental Retardation/Autism: No (08/06/2016 15:40:Sommer West RN) Gen Hx Tested for Fragile X: No (08/06/2016 15:40:Sommer West RN) Gen Hx Other Inher/Chromosomal: No (08/06/2016 15:40:Sommer West RN) Gen Hx Maternal Metabolic DO: No (08/06/2016 15:40:Sommer West RN) Gen Hx Pt Father or FOB Defect: No (08/06/2016 15:40:Sommer West RN) Gen Hx Other Genetic History: No (08/06/2016 15:40:Sommer West RN) Gen Hx Drugs/Meds since LMP: No (08/06/2016 15:40:Sommer West RN)
--- NOTE | 2016-09-25 06:00 | L&D Current Admission ---
Current Admit Datetime Report Generated by CPN: 09/25/2016 06:00 ADMISSION INFORMATION Chief Complaint: PIH workup sent from [facility], [facility] ordered (09/09/2016 11:30:Shavonne Hauser RN) Medications During : Rantidine (Zantac) (08/06/2016 15:35:Sommer West RN) Meds During -Oth: PNV; Probiotics (08/06/2016 15:35:Sommer West RN) Method of Arrival: Ambulatory (08/06/2016 15:35:Sommer West RN) Admitted From: Home (08/06/2016 15:35:Sommer West RN) Records Available: Yes (08/06/2016 15:35:Sommer West RN)
[2016-09-25] MEDS: OXYCODONE-ACETAMINOPHEN 5-325 MG TABLET PO PRN ×3 (07:23→19:21)
[2016-09-25 08:08] LABS: HEMATOCRIT 32.5 % (36.0-47.0); HEMOGLOBIN 10.6 g/dL (12.0-15.5); HGB HCT DIFFERENCE -0.7; MEAN CORPUSCULAR HEMOGLOBIN 27.4 pg (27.0-33.4); MEAN CORPUSCULAR HGB CONC 32.6 g/dL (32.0-36.0); MEAN CORPUSCULAR VOLUME 84 fl (80-97); RED BLOOD COUNT 3.86 10^6/uL (3.72-5.28); RED CELL DISTRIBUTION WIDTH 13.7 % (11.5-14.0)
[2016-09-25] MEDS: DOCUSATE SODIUM 100 MG CAPSULE PO SCH ×2 (09:09→17:26)
[2016-09-25] MEDS: PRENATAL VITAMIN W-O CA NO5/FE FUMARATE/FA CAPSULE PO SCH (09:10)
--- NOTE | 2016-09-25 11:13 | PDOC PROGRESS REPORT ---
Subjective-OB Subjective: Post Delivery Day: 30 year old. Denies any needs at this time. Pt doing well, ambulatory, reports +flatus, regular diet and voiding well. No concerns. Physical Exam (OB) Vital Signs: Temp Pulse Resp BP Pulse Ox 98.1 F 80 16 112/62 97 09/25/16 07:28 09/25/16 07:28 09/25/16 07:28 09/25/16 07:28 09/25/16 07:28 Intake & Output 09/24/16 09/25/16 09/26/16 06:59 06:59 06:59 Intake Total 3075 Output Total 3850 Balance -775 Weight 79.379 kg - PIH/Pre-Eclampsia Headache: Absent Epigastric Pain: No Visual Changes: No - Dressing Removed: No Incision: Dressing - Lochia Lochia Amount: Moderate 25-50 ml Lochia Color: Rubra/Red - Abdomen Description: Tender, Soft Hernia Present: No Fundal Description: Firm, Midline Fundal Height: u/u - u/2 Objective-Diagnostic Laboratory: 09/25/16 07:58 09/22/16 11:54 09/25/16 07:58 WBC 11.0 H RBC 3.86 Hgb 10.6 L Hct 32.5 L MCV 84 MCH 27.4 MCHC 32.6 RDW 13.7 Plt Count 208 Assessment and Plan(PN) - Assessment and Plan (1) Delivery by elective caesarean section Is this a current diagnosis for this admission?: Yes - Time Spent with Patient Time with patient: Less than 15 minutes Medications reviewed and adjusted accordingly: Yes - Disposition Anticipated Discharge: Home Within: within 48 hours
[2016-09-26] MEDS: OXYCODONE-ACETAMINOPHEN 5-325 MG TABLET PO PRN (05:30)
[2016-09-26] MEDS: IBUPROFEN 800 MG TABLET PO SCH (06:59)
[2016-09-26] MEDS: PRENATAL VITAMIN W-O CA NO5/FE FUMARATE/FA CAPSULE PO SCH (10:29)
[2016-09-26] MEDS: DOCUSATE SODIUM 100 MG CAPSULE PO SCH (10:29)
--- NOTE | 2016-09-26 10:59 | PDOC PROGRESS REPORT ---
Subjective-OB Subjective: Post Delivery Day: 30 year old. Denies any needs at this time. Ready to go home. Physical Exam (OB) Vital Signs: Temp Pulse Resp BP Pulse Ox 98.3 F 89 16 123/81 100 09/26/16 03:46 09/26/16 03:46 09/26/16 03:46 09/26/16 03:46 09/26/16 03:46 Intake & Output 09/25/16 09/26/16 09/27/16 06:59 06:59 06:59 Intake Total 3075 915 Output Total 3850 Balance -775 915 Weight 79.379 kg - PIH/Pre-Eclampsia Headache: Absent Epigastric Pain: Yes Visual Changes: Yes - Dressing Removed: Yes Incision: Dressing Closure Type: Opsite - Bilateral Tubal Ligation Dressing Removed: Yes Site: Dressing - Lochia Lochia Amount: Scant < 10 ml Lochia Color: Serosa/Brown - Abdomen Description: Soft, Round Hernia Present: No Bowel Sounds: Normoactive Flatus Presence: Present Stool: No Fundal Description: Firm, Midline Fundal Height: u/3 - u/4 Objective-Diagnostic Laboratory: 09/25/16 07:58 09/22/16 11:54 Assessment and Plan(PN) - Time Spent with Patient Medications reviewed and adjusted accordingly: Yes - Disposition Anticipated Discharge: Home
--- NOTE | 2016-09-26 11:04 | PDOC DISCHARGE SUMMARY ---
Final Diagnosis Discharge Date: 09/26/16 - Final Diagnosis (1) Breech presentation delivered Is this a current diagnosis for this admission?: Yes (2) Delivery by elective caesarean section Is this a current diagnosis for this admission?: Yes (3) induced hypertension Is this a current diagnosis for this admission?: Yes Discharge Data - Discharge Medication Home Medications: Pnv with Ca,No.71/Iron/FA [ Vitamin Tablet] 1 tab PO DAILY 11/10/13 L.acidoph & Paracasei,B.lactis [Probiotic] 1 cap PO DAILY 08/08/16 Ranitidine HCl [Zantac 150 mg Tablet] 150 mg PO DAILY 08/08/16 Docusate Sodium [Colace 100 mg Capsule] 100 mg PO BID #30 capsule 09/26/16 Ibuprofen [Motrin 800 mg Tablet] 800 mg PO Q6 #30 tablet 09/26/16 Oxycodone HCl/Acetaminophen [Percocet 5-325 mg Tablet] 1 tab PO Q4HP PRN #20 tablet 09/26/16 Gestational Age: 37 wks Reason(s) for Admission: Ceasarean Section-Primary Procedures: Ultrasound Intrapartum Procedure(s): : Low Cervical, Transverse - Data Baby 1 Male at 1 minute: 8 at 5 minutes: 9 Weight: 2.892 kg Home with Mother: Yes Complications: No - Diagnosis Test Laboratory: Temp Pulse Resp BP Pulse Ox 98.3 F 89 16 123/81 100 09/26/16 03:46 09/26/16 03:46 09/26/16 03:46 09/26/16 03:46 09/26/16 03:46 09/22/16 09/22/16 09/25/16 11:54 11:54 07:58 RBC 4.35 3.86 Hgb 12.3 10.6 L Hct 36.1 32.5 L Urine Opiates Screen NEGATIVE - Discharge information/Instructions Discharge Activity: Activity As Tolerated, Balance Activity w/Rest, No Lifting Over 10 Pounds, No Lifting/Push/Pulling, Non-Ambulatory Child, Pelvic Rest, Slowly Increase Activity, No tub bath Discharge Diet: Regular Disposition: HOME, SELF-CARE Follow [facility] with: [facility] in: 1, Weeks
[2016-09-26 11:43] VITALS: BP 116/68
== END 2016-09-26 13:00 | disposition home or self-care (01) | DRG 766 ==
LOC: 2S 07:22 → 2N 13:20
PROVIDERS: ADMIT Specialist; ATTEND Specialist
PROC: 0UL70CZ Occlusion of Bilateral Fallopian Tubes with Extraluminal Device, Open Approach (ICD-10-PCS; 2016-09-24)
PROC: 4A1HXCZ Monitoring of Products of Conception, Cardiac Rate, External Approach (ICD-10-PCS; 2016-09-24)
PROC: 10D00Z1 Extraction of Products of Conception, Low, Open Approach (ICD-10-PCS; principal; 2016-09-24 10:30)
PROC: 3E0234Z Introduction of Serum, Toxoid and Vaccine into Muscle, Percutaneous Approach (ICD-10-PCS; 2016-09-26)
DX: O64.1XX0 Obstructed labor due to breech presentation, not applicable or unspecified (principal); O13.4 Gestational [pregnancy-induced] hypertension without significant proteinuria, complicating childbirth; O69.81X0 Labor and delivery complicated by cord around neck, without compression, not applicable or unspecified; O34.03 Maternal care for unspecified congenital malformation of uterus, third trimester; Q51.3 Bicornate uterus; Z30.2 Encounter for sterilization; Z37.0 Single live birth; Z3A.37 37 weeks gestation of pregnancy; Z23 Encounter for immunization; Z83.3 Family history of diabetes mellitus; Z88.0 Allergy status to penicillin
CPT/HCPCS: 1961; 36415; 80053; 80307; 81001; 83615; 84550; 85025; 85027; 86850; 86900; 86901; 90715; 94799; J0131; J0690; J1170; J2250; J2405; J2590; J2704; J3490; J7120